=== PATIENT | female | born 1935 | race Caucasian/White ===

== ENCOUNTER → 2016-09-06 | Outpatient (CLI) | payer MEDICARE, MEDICAID ==
[2016-09-06 08:50] LABS: ABSOLUTE BASOPHILS # (AUTO) 0.1 10^3/uL (0.0-0.2); ABSOLUTE EOSINOPHILS # (AUTO) 0.2 10^3/uL (0.0-0.6); ABSOLUTE MONOCYTES (AUTO) 0.7 10^3/uL (0.1-1.4); ABSOLUTE NEUT (AUTO) 4.6 10^3/uL (1.7-8.2); EOSINOPHILS % (AUTO) 2.5 % (0-6); HEMATOCRIT 34.3 % (36.0-47.0); HEMOGLOBIN 10.8 g/dL (12.0-15.5); HGB HCT DIFFERENCE -1.9; LYMPHOCYTES % (AUTO) 26.6 % (13-45); MEAN CORPUSCULAR HEMOGLOBIN 24.4 pg (27.0-33.4); MEAN CORPUSCULAR HGB CONC 31.5 g/dL (32.0-36.0); MEAN CORPUSCULAR VOLUME 78 fl (80-97); MONOCYTES % (AUTO) 8.9 % (3-13); RED BLOOD COUNT 4.42 10^6/uL (3.72-5.28); RED CELL DISTRIBUTION WIDTH 16.7 % (11.5-14.0); WHITE BLOOD COUNT 7.6 10^3/uL (4.0-10.5)
[2016-09-06 09:20] LABS: ALANINE AMINOTRANSFERASE 19 U/L (9-52); ALBUMIN 4.1 g/dL (3.5-5.0); ALKALINE PHOSPHATASE 97 U/L (38-126); ANION GAP 11 (5-19); ASPARTATE AMINO TRANSFERASE 20 U/L (14-36); BILIRUBIN,DIRECT 0.2 mg/dL (0.0-0.4); BILIRUBIN,TOTAL 0.4 mg/dL (0.2-1.3); BLOOD UREA NITROGEN 22 mg/dL (7-20); CALCIUM 10.4 mg/dL (8.4-10.2); CARBON DIOXIDE 28 mmol/L (22-30); CHLORIDE 105 mmol/L (98-107); CHOLESTEROL 179.23 mg/dL (0-200); CREATININE RESULT 0.94 mg/dL (0.52-1.25); Direct HDL 65 mg/dL (>40); GLUCOSE 102 mg/dL (75-110); POTASSIUM 4.8 mmol/L (3.6-5.0); SODIUM 144.3 mmol/L (137-145); TOTAL PROTEIN 7.5 g/dL (6.3-8.2); TRIGLYCERIDES 120 mg/dL (<150)
[2016-09-06 09:31] LABS: DIRECT LDL 71 mg/dL (<100)
[2016-09-06 19:10] LABS: FERRITIN 6.32 ng/mL (11.1-264.0)
== END ==
LOC: OD 07:50
PROVIDERS: ATTEND Internal Medicine
DX: R53.83 Other fatigue (principal); E78.5 Hyperlipidemia, unspecified; E03.9 Hypothyroidism, unspecified; D64.9 Anemia, unspecified
CPT/HCPCS: 36415; 80053; 80061; 82728; 83540; 83550; 84443; 85025; 85045

== ENCOUNTER 2017-05-28 08:08 | Inpatient (IN) | payer MEDICARE, MEDICAID ==
[2017-05-21 11:47] LABS: HEMATOCRIT 35.4 % (36.0-47.0); HEMOGLOBIN 11.7 g/dL (12.0-15.5); HGB HCT DIFFERENCE -0.3; MEAN CORPUSCULAR HEMOGLOBIN 29.1 pg (27.0-33.4); MEAN CORPUSCULAR HGB CONC 32.9 g/dL (32.0-36.0); MEAN CORPUSCULAR VOLUME 88 fl (80-97); RED BLOOD COUNT 4.01 10^6/uL (3.72-5.28); RED CELL DISTRIBUTION WIDTH 14.6 % (11.5-14.0); WHITE BLOOD COUNT 6.9 10^3/uL (4.0-10.5)
--- NOTE | 2017-05-21 11:53 | RADIOLOGY REPORT (SQ) ---
EXAM DESCRIPTION: CHEST PA/LATERAL COMPLETED DATE/TIME: 05/21/2017 11:36 am REASON FOR STUDY: PRE OP COMPARISON: None. EXAM PARAMETERS: NUMBER OF VIEWS: two views TECHNIQUE: Digital Frontal and Lateral radiographic views of the chest acquired. RADIATION DOSE: NA LIMITATIONS: none FINDINGS: LUNGS AND PLEURA: The lungs are hyperexpanded with flattening of the diaphragms. There ar e no infiltrates or effusions. There is no mass. MEDIASTINUM AND HILAR STRUCTURES: No masses or contour abnormalities. HEART AND VASCULAR STRUCTURES: Heart normal size. No evidence for failure. BONES: No acute findings. HARDWARE: None in the chest. OTHER: No other significant finding. IMPRESSION: Mild chronic lung changes with no acute cardiopulmonary disease TECHNICAL DOCUMENTATION: JOB ID: [id number] [employer]- All Rights Reserved
--- NOTE | 2017-05-21 11:58 | EKG REPORT ---
SEVERITY:- ABNORMAL ECG - SINUS RHYTHM LVH WITH SECONDARY REPOLARIZATION ABNORMALITY : Confirmed by: Fernando Chiang 21-May-2017 11:57:52
[2017-05-21 12:16] LABS: ANION GAP 11 (5-19); BLOOD UREA NITROGEN 14 mg/dL (7-20); CARBON DIOXIDE 29 mmol/L (22-30); CHLORIDE 104 mmol/L (98-107); CREATININE RESULT 0.86 mg/dL (0.52-1.25); GLUCOSE 88 mg/dL (75-110); POTASSIUM 4.4 mmol/L (3.6-5.0); SODIUM 143.6 mmol/L (137-145)
[~2017-05-28 08:08] MED LIST: BUPIVACAINE HCL 0.25 % INJ/PF (2.5 MG/1 ML) 30 ML VIAL ONE; LACTATED RINGERS 1000 ML IV PRN; LIDOCAINE 0.5% INJ-PF (5 MG/ML) 50 ML SDV SUBCUT PRN
[2017-05-28] MEDS ORDERED: FENTANYL CITRATE INJ/PF 100 MCG/2 ML AMPUL ONE ×3 (08:23→08:49)
[2017-05-28] MEDS ORDERED: MIDAZOLAM 2 MG/2 ML INJ ONE (08:23)
[2017-05-28] MEDS ORDERED: ACETAMINOPHEN 100 ML IV ONE (08:24)
[2017-05-28] MEDS ORDERED: MORPHINE SULFATE 10 MG/ML INJ ONE (08:24)
[2017-05-28] MEDS ORDERED: PROPOFOL INJ 200 MG/20 ML VIAL IV ONE (08:24)
[2017-05-28] MEDS ORDERED: EPHEDRINE SULFATE INJ 50 MG/1 ML AMPULE ONE (08:24)
[2017-05-28] MEDS: ERTAPENEM SODIUM 1 GM in NORMAL SALINE 50 ML IV PRN ×3 (09:04→20:16)
[2017-05-28] MEDS ORDERED: DIPHENHYDRAMINE HCL 50 MG/ML VIAL IV PRN (10:19)
[2017-05-28] MEDS ORDERED: PROMETHAZINE HCL INJ 25 MG/1 ML VIAL IV PRN (10:19)
[2017-05-28] MEDS ORDERED: FENTANYL CITRATE INJ/PF 100 MCG/2 ML AMPUL IV PRN ×3 (10:19)
[2017-05-28] MEDS: FENTANYL CITRATE INJ/PF 100 MCG/2 ML AMPUL ONE ×4 (12:24→12:42)
[2017-05-28] MEDS ORDERED: DEXTROSE 50%-WATER 25 GM/50 ML DISP.SYRIN IV PRN ×2 (12:43)
[2017-05-28] MEDS ORDERED: GLUCAGON,HUMAN RECOMB 1 MG INJ SUBCUT PRN (12:43)
[2017-05-28] MEDS ORDERED: DEXTROSE 40% GEL 15 GM TUBE PO PRN ×2 (12:43)
--- NOTE | 2017-05-28 12:57 | Operative Report ---
Operative Report DATE OF SURGERY: 05/28/17 PREOPERATIVE DIAGNOSIS: Right colon adenomatous polyp with dysplasia POSTOPERATIVE DIAGNOSIS: Same OPERATION: Laparoscopic hand-assisted partial right colon resection. Lysis of adhesions. SURGEON: NESTOR DANIEL ANESTHESIA: GA TISSUE REMOVED OR ALTERED: Proximal one fourth of right colon with very distal aspect of terminal ileum COMPLICATIONS: None ESTIMATED BLOOD LOSS: 100 cc INTRAOPERATIVE FINDINGS: Sessile polyp in the proximal right colon with evidence of prior biopsies. Extensive pelvic adhesions PROCEDURE: Informed consent was obtained. Patient was brought to the operating room and placed on the operating room table in the supine position. After satisfactory induction of general anesthesia patient's abdomen was prepped and draped in the usual sterile fashion. A midline periumbilical incision was made dissection carried down through the fascia and the peritoneal cavity was entered without difficulty. There were extensive lower abdominal omental adhesions which were taken down and a laparoscopic hand port was placed. Pneumoperitoneum produced with good patient toleration. A 5 mm trocar was placed in the subxiphoid location entering the peritoneal cavity to the right-hand side of the falciform ligament. End of the 5 mm trocar was placed in the right upper abdomen. There were extensive pelvic adhesions consisting of terminal ileum. All of these adhesions were taken down to allow enough mobility of the terminal ileum for the resection. The more dense omental adhesions in the pelvis were left alone. The right colon was mobilized along the line of Toldt up to the hepatic flexure. After sufficient mobility of the right colon had been obtained the cecum, terminal ileum, proximal aspect of the right colon were eviscerated through the laparoscopic hand port site. Using a TRIP stapling device the terminal ileum was divided close to its junction to the cecum. Two folds past the cecum the right colon was divided using a TRIP stapling device. The endoscopist had noted the lesion to be at the junction of the cecum right colon and the terminal ileum, therefore I felt that had resected sufficient amount of the right colon to encompass the polyp. The mesentery was taken by clamping dividing and tying. The mesentery was taken immediately adjacent to the bowel to avoid compromising the remaining bowel. The remaining bowel appeared pink and well vascularized. Triphasic signals were noted with the Doppler. The specimen was taken to pathology where it was opened and there was a sessile polyp in the right colon that had the appearance of prior biopsies. Bowel continuity was then re-created creating a [id number] functional end-to-end anastomosis between the terminal ileum and the right colon using a TRIP stapling device. The enterotomy created to introduced a stapling device was closed with a TA stapling device. Hemostasis appeared good. The anastomosis appeared secure. The bowel was returned back into the peritoneal cavity. Laparoscopic view demonstrated good hemostasis. There had been some slight oozing at the dissection of the omentum at the beginning of the case but bleeding appeared to have completely stopped. Despite multiple technical measures and NG tube could not be placed into the stomach. Laparoscopic view of the anterior abdominal wall appeared normal other than the adhesions that was mentioned. The liver appeared normal. All trochars were removed under the direct vision of the laparoscope to ensure hemostasis. The laparoscopic hand port fascial defect was closed with running PDS suture. All skin incisions were closed with sally. Marcaine was injected at the operative sites. Patient tolerated procedure well with no apparent complications and was taken to the recovery area in stable condition.
[2017-05-28] MEDS ORDERED: HYDROMORPHONE HCL INJ/PF 2 MG/ML AMPULE ONE (13:00)
[2017-05-28] MEDS ORDERED: GLYCOPYRROLATE INJ 0.4 MG/2 ML VIAL ONE (14:48)
[2017-05-28] MEDS ORDERED: ONDANSETRON HCL INJ/PF 4 MG/2 ML SDV ONE (14:48)
[2017-05-28] MEDS ORDERED: SUCCINYLCHOLINE CHLORIDE INJ 200 MG/10 ML VIAL ONE (14:48)
[2017-05-28] MEDS ORDERED: VECURONIUM BROMIDE INJ 10 MG VIAL IV ONE (14:48)
[2017-05-28] MEDS ORDERED: DEXAMETHASONE SOD PHOSPHATE INJ 4 MG/1 ML VIAL ONE (14:48)
[2017-05-28] MEDS ORDERED: LIDOCAINE 2% INJ-PF (20 MG/ML) 2 ML AMPUL ONE (14:48)
[2017-05-28] MEDS ORDERED: NEOSTIGMINE METHYLSULFATE 10 MG/10 ML VIAL ONE (14:48)
[2017-05-28] MEDS: HYDROMORPHONE HCL INJ/PF 2 MG/ML AMPULE IV PRN (15:01)
[2017-05-28] MEDS: ONDANSETRON HCL INJ/PF 4 MG/2 ML SDV IV PRN (15:08)
--- NOTE | 2017-05-28 17:16 | PDOC PROGRESS REPORT ---
Subjective Progress Note for:: 05/28/17 Subjective:: Mid abdominal pain at the incision site. Reason For Visit: K63.5 POLYP OF COLON Physical Exam Vital Signs: Temp Pulse Resp BP Pulse Ox 97.5 F 79 12 131/53 H 98 05/28/17 16:15 05/28/17 16:15 05/28/17 16:15 05/28/17 16:15 05/28/17 15:15 Intake & Output 05/27/17 05/28/17 05/29/17 06:59 06:59 06:59 Intake Total 2200 Output Total 575 Balance 1625 General appearance: PRESENT: cooperative, mild distress - Complains of mid abdominal pain Respiratory exam: PRESENT: clear to auscultation maikol Cardiovascular exam: PRESENT: RRR GI/Abdominal exam: PRESENT: other - Soft, Nondistended, appropriate tenderness at the midline. Skin exam: PRESENT: warm Results Laboratory Results: 05/21/17 10:43 05/21/17 10:43 05/28/17 08:50 Blood Type A POSITIVE Antibody Screen NEGATIVE Impressions: Chest X-Ray 05/21/17 11:26 IMPRESSION: Mild chronic lung changes with no acute cardiopulmonary disease Assessment & Plan - Diagnosis (1) Adenomatous colon polyp Qualifiers: Colon location: ascending Qualified Code(s): D12.2 - Benign neoplasm of ascending colon Is this a current diagnosis for this admission?: Yes Plan: Status post laparoscopic partial right colon resection. Patient with incisional pain at the hand port site that is to be expected at this point. Will try Toradol if ineffective, will increase her Dilaudid dose. Patient looks okay otherwise. Await bowel function.
[2017-05-28] MEDS: KETOROLAC TROMETHAMINE INJ/PF 30 MG/1 ML SDV IV SCH (17:44)
[2017-05-29] MEDS: KETOROLAC TROMETHAMINE INJ/PF 30 MG/1 ML SDV IV SCH ×3 (02:27→17:18)
[2017-05-29 05:43] LABS: HEMATOCRIT 32.3 % (36.0-47.0); HEMOGLOBIN 10.6 g/dL (12.0-15.5); HGB HCT DIFFERENCE -0.5; MEAN CORPUSCULAR HEMOGLOBIN 28.9 pg (27.0-33.4); MEAN CORPUSCULAR HGB CONC 32.9 g/dL (32.0-36.0); MEAN CORPUSCULAR VOLUME 88 fl (80-97); RED BLOOD COUNT 3.67 10^6/uL (3.72-5.28); RED CELL DISTRIBUTION WIDTH 14.2 % (11.5-14.0); WHITE BLOOD COUNT 11.3 10^3/uL (4.0-10.5)
[2017-05-29 06:08] LABS: ANION GAP 9 (5-19); BLOOD UREA NITROGEN 11 mg/dL (7-20); CALCIUM 8.6 mg/dL (8.4-10.2); CARBON DIOXIDE 24 mmol/L (22-30); CHLORIDE 108 mmol/L (98-107); CREATININE RESULT 0.81 mg/dL (0.52-1.25); GLUCOSE 99 mg/dL (75-110); POTASSIUM 4.2 mmol/L (3.6-5.0)
[2017-05-29] MEDS: NORMAL SALINE 1000 ML 1,000 ML IV PRN (10:48)
[2017-05-29] MEDS: HYDROMORPHONE HCL INJ/PF 2 MG/ML AMPULE IV PRN (12:04)
--- NOTE | 2017-05-29 12:05 | PDOC PROGRESS REPORT ---
Subjective Progress Note for:: 05/29/17 Subjective:: Feels well. No nausea. Abdominal pain of the good control. Reason For Visit: K63.5 POLYP OF COLON Physical Exam Vital Signs: Temp Pulse Resp BP Pulse Ox 98.2 F 70 20 126/43 H 96 05/29/17 08:31 05/29/17 08:31 05/29/17 08:31 05/29/17 08:31 05/29/17 09:24 Intake & Output 05/28/17 05/29/17 05/30/17 06:59 06:59 06:59 Intake Total 4320 Output Total 1055 Balance 3265 Weight 69.4 kg General appearance: PRESENT: no acute distress, cooperative Respiratory exam: PRESENT: clear to auscultation maikol Cardiovascular exam: PRESENT: RRR GI/Abdominal exam: PRESENT: soft, other - Distended and minimal tenderness to palpation. Musculoskeletal exam: PRESENT: other - No swelling. Results Laboratory Results: 05/29/17 05:06 05/29/17 05:06 05/29/17 05/29/17 05:06 05:06 WBC 11.3 H RBC 3.67 L Hgb 10.6 L Hct 32.3 L MCV 88 MCH 28.9 MCHC 32.9 RDW 14.2 H Plt Count 197 Sodium 141.0 Potassium 4.2 Chloride 108 H Carbon Dioxide 24 Anion Gap 9 BUN 11 Creatinine 0.81 Est GFR ( Amer) > 60 Est GFR (Non-Af Amer) > 60 Glucose 99 Calcium 8.6 Impressions: Chest X-Ray 05/21/17 11:26 IMPRESSION: Mild chronic lung changes with no acute cardiopulmonary disease Assessment & Plan - Diagnosis (1) Adenomatous colon polyp Qualifiers: Colon location: ascending Qualified Code(s): D12.2 - Benign neoplasm of ascending colon Is this a current diagnosis for this admission?: Yes Plan: Doing well after laparoscopic partial right colon resection. CARLOS Corbett. Ambulate patient. await bowel function.
[2017-05-30] MEDS: KETOROLAC TROMETHAMINE INJ/PF 30 MG/1 ML SDV IV SCH ×3 (02:10→18:01)
[2017-05-30] MEDS: ONDANSETRON HCL INJ/PF 4 MG/2 ML SDV IV PRN (07:46)
[2017-05-30] MEDS ORDERED: MAG HYDROX/AL HYDROX/SIMETH SUSP 30 ML UDCUP PO ONE (08:15)
[2017-05-30] MEDS: NORMAL SALINE 1000 ML 1,000 ML IV PRN (08:15)
[2017-05-30] MEDS ORDERED: FAMOTIDINE INJ/PF 20 MG/2 ML SDV IV ONE (08:15)
--- NOTE | 2017-05-30 09:35 | PDOC PROGRESS REPORT ---
Subjective Progress Note for:: 05/30/17 Subjective:: Patient has been experiencing heartburn with burning sensation radiating all the way to the mouth. No associated shortness of breath. She has had no emesis. She has passed small amount of liquid stool. She was given Mylanta and she states that her heartburn symptoms are improving. Reason For Visit: K63.5 POLYP OF COLON Physical Exam Vital Signs: Temp Pulse Resp BP Pulse Ox 98.0 F 79 17 186/60 H 94 05/30/17 07:46 05/30/17 07:46 05/30/17 07:46 05/30/17 07:46 05/30/17 07:46 Intake & Output 05/29/17 05/30/17 05/31/17 06:59 06:59 06:59 Intake Total 4320 2080 Output Total 1055 1950 Balance 3265 130 Weight 69.4 kg 71.5 kg General appearance: PRESENT: no acute distress, cooperative Respiratory exam: PRESENT: clear to auscultation maikol Cardiovascular exam: PRESENT: RRR GI/Abdominal exam: PRESENT: other - Soft, mildly distended, diminished bowel sounds. Mild abdominal tenderness with no peritoneal signs. Wound clean dry and intact. Extremities exam: PRESENT: other - No swelling and no tenderness. Results Laboratory Results: 05/29/17 05:06 05/29/17 05:06 Impressions: Chest X-Ray 05/21/17 11:26 IMPRESSION: Mild chronic lung changes with no acute cardiopulmonary disease Assessment & Plan - Diagnosis (1) Adenomatous colon polyp Qualifiers: Colon location: ascending Qualified Code(s): D12.2 - Benign neoplasm of ascending colon Is this a current diagnosis for this admission?: Yes Plan: Doing well after laparoscopic partial right colon resection. Patient with reflux symptoms. Responding well to Mylanta. Will place her on Pepcid. If she does not have relief, will obtain EKG and proceed with a cardiac workup. However with her symptoms and improvement with Mylanta I am confident that it is reflux related symptoms. Hopefully she will have good bowel function soon so that we can avoid NG tube placement.
[2017-05-30] MEDS ORDERED: [UNRECOGNIZED DRUG - OTHER] IV PRN ×2 (09:36)
[2017-05-30] MEDS ORDERED: POTASSIUM CHLORIDE IV PRN ×2 (09:36)
[2017-05-30] MEDS ORDERED: DEXTROSE IV PRN ×2 (09:36)
[2017-05-30] MEDS: POTASSI CL 20 MEQ/D5-1/2NS 1L 1000 ML IV PRN (16:56)
[2017-05-30] MEDS: FAMOTIDINE INJ/PF 20 MG/2 ML SDV IV SCH (21:50)
[2017-05-31] MEDS: KETOROLAC TROMETHAMINE INJ/PF 30 MG/1 ML SDV IV SCH ×3 (02:12→18:14)
[2017-05-31] MEDS: POTASSI CL 20 MEQ/D5-1/2NS 1L 1000 ML IV PRN (04:34)
--- NOTE | 2017-05-31 08:29 | PDOC PROGRESS REPORT ---
Subjective Progress Note for:: 05/31/17 Subjective:: Feels tired but otherwise okay. No heartburn. No nausea. Patient is hungry. She has been passing gas and small amount of liquid stool. Reason For Visit: K63.5 POLYP OF COLON Physical Exam Vital Signs: Temp Pulse Resp BP Pulse Ox 97.5 F 66 18 160/47 H 93 05/30/17 23:47 05/30/17 23:47 05/30/17 23:47 05/30/17 23:47 05/30/17 23:47 Intake & Output 05/30/17 05/31/17 06/01/17 06:59 06:59 06:59 Intake Total 2080 2440 Output Total 1950 2600 Balance 130 -160 Weight 71.5 kg 72.3 kg General appearance: PRESENT: no acute distress, cooperative Respiratory exam: PRESENT: clear to auscultation maikol Cardiovascular exam: PRESENT: RRR GI/Abdominal exam: PRESENT: other - Soft, nondistended, active bowel sounds, mild tenderness without peritoneal signs. Extremities exam: PRESENT: other - No swelling. Results Laboratory Results: 05/29/17 05:06 05/29/17 05:06 Impressions: Chest X-Ray 05/21/17 11:26 IMPRESSION: Mild chronic lung changes with no acute cardiopulmonary disease Assessment & Plan - Diagnosis (1) Adenomatous colon polyp Qualifiers: Colon location: ascending Qualified Code(s): D12.2 - Benign neoplasm of ascending colon Is this a current diagnosis for this admission?: Yes Plan: Doing well after laparoscopic partial right colon resection. Gastrointestinal symptoms markedly improved from yesterday. Evidence of bowel function with flatus and active bowel sounds. No nausea no heartburn. Will start clear liquids today.
[2017-05-31] MEDS ORDERED: POTASSI CL 20 MEQ/D5-1/2NS 1L 1,000 ML IV PRN (08:30)
[2017-05-31] MEDS: FAMOTIDINE INJ/PF 20 MG/2 ML SDV IV SCH ×2 (11:16→22:37)
[2017-06-01] MEDS: KETOROLAC TROMETHAMINE INJ/PF 30 MG/1 ML SDV IV SCH ×3 (03:35→21:05)
[2017-06-01] MEDS: FAMOTIDINE INJ/PF 20 MG/2 ML SDV IV SCH ×2 (10:47→21:05)
[2017-06-01] MEDS ORDERED: ACETAMINOPHEN WITH CODEINE #3 TABLET PO PRN (11:14)
--- NOTE | 2017-06-01 11:21 | PDOC PROGRESS REPORT ---
Subjective Progress Note for:: 06/01/17 Reason For Visit: K63.5 POLYP OF COLON Patient has no complaints, tolerated clear liquids without difficulty. Transferring about on her own, ambulating with walker Physical Exam Vital Signs: Temp Pulse Resp BP Pulse Ox 97.6 F 62 12 152/51 H 94 06/01/17 07:36 06/01/17 07:36 06/01/17 07:36 06/01/17 07:36 06/01/17 07:36 Intake & Output 05/31/17 06/01/17 06/02/17 06:59 06:59 06:59 Intake Total 2440 3359 0 Output Total 2600 500 Balance -160 3359 -500 Weight 72.3 kg 69.4 kg General appearance: PRESENT: no acute distress GI/Abdominal exam: PRESENT: other - Dressings removed. Minimal bruising Results Laboratory Results: 05/29/17 05:06 05/29/17 05:06 Impressions: Chest X-Ray 05/21/17 11:26 IMPRESSION: Mild chronic lung changes with no acute cardiopulmonary disease Assessment & Plan - Diagnosis (1) Adenomatous colon polyp Qualifiers: Colon location: ascending Qualified Code(s): D12.2 - Benign neoplasm of ascending colon Is this a current diagnosis for this admission?: Yes Plan: 4 days status post laparoscopic right hemicolectomy, doing well, no complications, adequate pain control, tolerating clear liquids, voiding and ambulating. Plan: 1. Advance diet to full liquid 2. Start full liquids 3. Anticipate discharge home the next 24 hours.
[2017-06-02] MEDS ORDERED: KETOROLAC TROMETHAMINE INJ/PF 30 MG/1 ML SDV IV SCH (02:00)
[2017-06-02] MEDS: KETOROLAC TROMETHAMINE INJ/PF 30 MG/1 ML SDV IV SCH (06:24)
[2017-06-02] MEDS: FAMOTIDINE INJ/PF 20 MG/2 ML SDV IV SCH (09:43)
[2017-06-02 10:04] VITALS: BP 154/48
[2017-06-02] MEDS ORDERED: LEVOTHYROXINE SODIUM 0.025 MG TABLET PO ONE (10:30)
[2017-06-02] MEDS ORDERED: LEVOTHYROXINE SODIUM 0.112 MG TABLET PO ONE (10:30)
--- NOTE | 2017-06-02 16:08 | DISCHARGE SUMMARY E ---
Discharge Summary NAME: JAN EDUARDO : 1935 AGE: 82Y ADMITTED: 05/28/2017 DISCHARGED: 06/02/2017 SUMMARY OF HOSPITALIZATION: The patient is an 82-year-old white female with a history of a right colon polyp with atypia. The patient was brought to Ambulatory Surgery for definitive surgical management. On 05/28/2017, she was taken to the operating room by Dr. Catracho Lerma and underwent laparoscopic hand-assisted partial right colon resection. She tolerated the operation well without complication. Final pathology report showed chronic inflammation only, no evidence of dysplasia malignancy. Postoperatively the patient did well, started on a diet, and this was advanced and tolerated satisfactorily. Wounds healed without evidence of infection. By the fifth postoperative day, she ready for discharge home. FINAL DIAGNOSIS: History of atypical polyp, right colon, status post right hemicolectomy, laparoscopic hand assisted, Dr. Lerma. DISPOSITION: The patient will be discharged home to the care of her family. Followup with Dr. Lerma in approximately 1 week. Resume preoperative medications, diet, and activity. Specifically, she will be given Synthroid 137 mcg today; she was also given a script for Toradol p.o. DICTATING PHYSICIAN: ALYSSA FROST M.D. [id number] PHY#: [id number] ID: [id number] JOB#: [id number] ACCT: [id number] cc:Ele CANO M.D. >
== END 2017-06-02 10:40 | disposition home or self-care (01) | DRG 331 ==
LOC: INOR 08:08 → 4S 14:11
PROVIDERS: ADMIT Surgery; ATTEND Surgery
PROC: 0DNW4ZZ Release Peritoneum, Percutaneous Endoscopic Approach (ICD-10-PCS; 2017-05-28)
PROC: 0DTF4ZZ Resection of Right Large Intestine, Percutaneous Endoscopic Approach (ICD-10-PCS; principal; 2017-05-28 09:30)
DX: D12.2 Benign neoplasm of ascending colon (principal); E07.9 Disorder of thyroid, unspecified; M19.90 Unspecified osteoarthritis, unspecified site; N99.4 Postprocedural pelvic peritoneal adhesions
CPT/HCPCS: 36415; 71020; 80048; 810; 82378; 840; 85027; 86850; 86900; 86901; 88307; 93005; 93010; J0131; J0330; J1100; J1170; J1335; J1885; J2250; J2270; J2405; J2704; J3010; J3480; J3490; J7030; S0028

== ENCOUNTER 2018-04-19 15:56 | Emergency (ER) | payer MEDICARE, MEDICAID ==
[2018-04-19 16:05] VITALS: BP 193/67
[2018-04-19] MEDS ORDERED: DIPH/PERTUSS(ACELL)/TETANUS VAC/PF 0.5 ML SYR (>=10YO) IM ONE (16:14)
--- NOTE | 2018-04-19 16:15 | ER Document Report ---
ED Medical Screen (RME) - General Chief Complaint: Fall Injury Stated Complaint: FALL,LEFT LEG INJURY Time Seen by Provider: 04/19/18 16:13 Mode of Arrival: Ambulatory Information source: Patient TRAVEL OUTSIDE OF THE [place] IN LAST 30 DAYS: No - HPI Patient complains to provider of: fall Onset: Just prior to arrival - pt. tripped and fell with injury to mid back, L chest , and L knee. Tet- ood - Related Data Allergies/Adverse Reactions: codeine Allergy (Verified 05/27/17 15:38) morphine Allergy (Verified 05/27/17 15:38) Past Medical History - Past Medical History Cardiac Medical History: Reports: Hx Hypercholesterolemia Denies: Hx Atrial Fibrillation, Hx Congestive Heart Failure, Hx Coronary Artery Disease, Hx Heart Attack, Hx Hypertension, Hx Peripheral Vascular Disease , Hx Heart Murmur Endocrine Medical History: Reports: Hx Hypothyroidism. Denies: Hx Graves' Disease, Hx Hyperthyroidism Renal/ Medical History: Reports: Hx Kidney Stones. Denies: Hx End Stage Renal Disease, Hx Peritoneal Dialysis Malignancy Medical History: Denies: Hx Leukemia GI Medical History: Reports: Hx Gastroesophageal Reflux Disease. Denies: Hx Crohn's Disease, Hx Hiatal Hernia, Hx Irritable Bowel, Hx Liver Failure, Hx Pancreatitis, Hx Ulcer Musculoskeltal Medical History: Reports Hx Arthritis - knees , Denies Hx Fibromyalgia, Denies Hx Muscular Dystrophy Traumatic Medical History: Denies: Hx Fractures Infectious Medical History: Denies: Hx HIV Past Surgical History: Reports: Hx Appendectomy, Hx Hysterectomy. Denies: Hx Bowel Surgery, Hx Section, Hx Cholecystectomy, Hx Colostomy, Hx Coronary Artery Bypass Graft, Hx Gastric Bypass Surgery, Hx Herniorrhaphy, Hx Mastectomy, Hx Pacemaker, Hx Tonsillectomy, Hx Tubal Ligation - Immunizations Immunizations up to date: No Hx Diphtheria, Pertussis, Tetanus Vaccination: No - unknown History of Influenza Vaccine for 03/2017 - 08/2017 Season: Yes Influenza Administration Date for 03/2017 - 08/2017 Season: 03/17/17 Physical Exam - Vital signs Vitals: Temp Pulse Resp BP Pulse Ox 97.7 F 86 17 193/67 H 97 04/19/18 16:03 04/19/18 16:03 04/19/18 16:03 04/19/18 16:03 04/19/18 16:03 Course - Vital Signs Vital signs: Temp Pulse Resp BP Pulse Ox 97.7 F 86 17 193/67 H 97 04/19/18 16:03 04/19/18 16:03 04/19/18 16:03 04/19/18 16:03 04/19/18 16:03 Doctor's Discharge - Discharge Referrals: ADELIA ROBERTO MD [Primary Care Provider] - Follow up as needed
--- NOTE | 2018-04-19 17:23 | RADIOLOGY REPORT (SQ) ---
EXAM DESCRIPTION: KNEE LEFT 3 VIEWS COMPLETED DATE/TIME: 04/19/2018 5:00 pm REASON FOR STUDY: fall COMPARISON: None. EXAM PARAMETERS: NUMBER OF VIEWS: Three views. TECHNIQUE: AP, lateral and oblique radiographic images acquired of the left knee. LIMITATIONS: None. FINDINGS: MINERALIZATION: Osteopenia. BONES: No acute fracture or dislocation. No worrisome bone lesions. JOINTS: No effusion. SOFT TISSUES: No significant soft tissue swelling. No radiopaque foreign body. OTHER: No other significant finding. IMPRESSION: NO FRACTURE. TECHNICAL DOCUMENTATION: JOB ID: [id number] 2010 [email or web address]- All Rights Reserved Reading location - IP/workstation name: [email or web address]
--- NOTE | 2018-04-19 17:24 | RADIOLOGY REPORT (SQ) ---
EXAM DESCRIPTION: CHEST 2 VIEWS COMPLETED DATE/TIME: 04/19/2018 5:00 pm REASON FOR STUDY: fall COMPARISON: None. EXAM PARAMETERS: NUMBER OF VIEWS: two views TECHNIQUE: Digital Frontal and Lateral radiographic views of the chest acquired. RADIATION DOSE: NA LIMITATIONS: none FINDINGS: LUNGS AND PLEURA: No opacities, masses or pneumothorax. No pleural effusion. MEDIASTINUM AND HILAR STRUCTURES: No masses or contour abnormalities. HEART AND VASCULAR STRUCTURES: Heart normal size. No evidence for failure. BONES: No acute findings. HARDWARE: None in the chest. OTHER: No other significant finding. IMPRESSION: NO ACUTE RADIOGRAPHIC FINDING IN THE CHEST. TECHNICAL DOCUMENTATION: JOB ID: [id number] [place]-72 2010 [email or web address]- All Rights Reserved Reading location - IP/workstation name: [email or web address]
--- NOTE | 2018-04-19 17:25 | RADIOLOGY REPORT (SQ) ---
EXAM DESCRIPTION: T SPINE AP/LAT COMPLETED DATE/TIME: 04/19/2018 5:00 pm REASON FOR STUDY: fall COMPARISON: None. NUMBER OF VIEWS: Two views. TECHNIQUE: AP and lateral radiographic images acquired of the thoracic spine. LIMITATIONS: None. FINDINGS: MINERALIZATION: Normal. ALIGNMENT: Normal. No scoliosis. VERTEBRAE: No fracture or bone lesion. Maintained height, normal segmentation. DISCS: Multilevel disc space narrowing with osteophytes. HARDWARE: None in the spine. MEDIASTINUM AND SOFT TISSUES: Normal heart size and aortic contour. No soft tissue abnormality. VISUALIZED LUNG CABRERA: Clear. OTHER: No other significant finding. IMPRESSION: SPONDYLOSIS WITHOUT BONE LESION OR FRACTURE. TECHNICAL DOCUMENTATION: JOB ID: [id number] [place]-72 2010 [employer]- All Rights Reserved Reading location - IP/workstation name: [email or web address]
== END 2018-04-19 18:10 | disposition home or self-care (01) ==
LOC: ER 15:56
DX: S20.229A Contusion of unspecified back wall of thorax, initial encounter (principal); S29.9XXA Unspecified injury of thorax, initial encounter; S89.92XA Unspecified injury of left lower leg, initial encounter; W01.0XXA Fall on same level from slipping, tripping and stumbling without subsequent striking against object, initial encounter; Y93.89 Activity, other specified
CPT/HCPCS: 71046; 72070; 90471; 90715; 99283

== ENCOUNTER 2018-04-19 23:19 | Emergency (ER) | payer MEDICARE, MEDICAID ==
[2018-04-19 23:31] VITALS: BP 193/66
--- NOTE | 2018-04-20 01:33 | ER Document Report ---
HPI - HPI Patient complains to provider of: wound reevaluation Onset: This morning Onset/Duration: Sudden, Constant, Worse Quality of pain: Achy, Throbbing Severity: Moderate Pain Level: 3 Context: Patient is an 82-year-old female who was seen in the ER earlier today and evaluated for a trip and fall that she sustained at the [facility]. She states that she was walking back to her facility and she something made her turn her head and she tripped over 1 of the parking slabs to stop a car. She landed more on her left side and was able with help to get up and walk after the fall. She sustained skin tears to the lateral side of her left knee and to her left elbow. Patient had x-rays performed here and she was bandaged up and sent on her way. Patient states that she was very unhappy with the wound care she received. She states that even before leaving she told 1 of the girls that the bandages were coming off and also they did was take a piece of tape and tape into her leg. When she got home she was sitting on the couch and felt like something was running in her elbow started bleeding where it was wrapped up. Patient came back down to the ER because she did not know what else to do and wanted it to be reevaluated. She is not complaining of any new injuries or any other aches or pains its the wound areas that she is concerned with. Patient denies any use of or having taken any blood thinners. She only takes omeprazole, Synthroid. She states that she is a very healthy 82 and will be 83 next week. She is requesting that we reevaluate her wounds and address the need to stop bleeding. Associated Symptoms: Other - Wound bleeding Exacerbated by: Denies Relieved by: Denies Similar symptoms previously: Yes Recently seen / treated by doctor: Yes - ROS ROS Unobtainable: Yes ROS unobtainable due to patient's medical condition - No Systems Reviewed and Negative: Yes All other systems reviewed and negative - CONSTITUTIONAL Constitutional: DENIES: Fever - EENT EENT: DENIES: Sore Throat, Congestion - NEURO Neurology: DENIES: Headache, Weakness, Vision blurred, Dizzinesss / Vertigo - CARDIOVASCULAR Cardiovascular: DENIES: Chest pain - RESPIRATORY Respiratory: DENIES: Trouble Breathing, Coughing - GASTROINTESTINAL Gastrointestinal: DENIES: Abdominal Pain, Nausea, Patient vomiting, Diarrhea, Constipation, Black / Bloody Stools - URINARY Urinary: DENIES: Dysuria, Urgency, Frequency - MUSCULOSKELETAL Musculoskeletal: REPORTS: Extremity pain - DERM Skin Problems: Skin Tear, Abrasion Past Medical History - General Information source: Patient - Social History Smoking Status: Never Smoker Cigarette use (# per day): No Chew tobacco use (# tins/day): No Smoking Education Provided: No Frequency of alcohol use: None Drug Abuse: None Lives with: Alone Family History: None, Reviewed & Not Pertinent Patient has suicidal ideation: No Patient has homicidal ideation: No - Past Medical History Cardiac Medical History: Reports: Hx Hypercholesterolemia Denies: Hx Atrial Fibrillation, Hx Congestive Heart Failure, Hx Coronary Artery Disease, Hx Heart Attack, Hx Hypertension, Hx Peripheral Vascular Disease , Hx Heart Murmur Endocrine Medical History: Reports: Hx Hypothyroidism. Denies: Hx Graves' Disease, Hx Hyperthyroidism Renal/ Medical History: Reports: Hx Kidney Stones. Denies: Hx End Stage Renal Disease, Hx Peritoneal Dialysis Malignancy Medical History: Denies: Hx Leukemia GI Medical History: Reports: Hx Gastroesophageal Reflux Disease. Denies: Hx Crohn's Disease, Hx Hiatal Hernia, Hx Irritable Bowel, Hx Liver Failure, Hx Pancreatitis, Hx Ulcer Musculoskeletal Medical History: Reports Hx Arthritis - knees , Denies Hx Fibromyalgia, Denies Hx Muscular Dystrophy Traumatic Medical History: Denies: Hx Fractures Infectious Medical History: Denies: Hx HIV Past Surgical History: Reports: Hx Appendectomy, Hx Hysterectomy. Denies: Hx Bowel Surgery, Hx Section, Hx Cholecystectomy, Hx Colostomy, Hx Coronary Artery Bypass Graft, Hx Gastric Bypass Surgery, Hx Herniorrhaphy, Hx Mastectomy, Hx Pacemaker, Hx Tonsillectomy, Hx Tubal Ligation - Immunizations Immunizations up to date: No Hx Diphtheria, Pertussis, Tetanus Vaccination: No - unknown Hx Pneumococcal Vaccination: 03/17/15 Vertical Provider Document - CONSTITUTIONAL Agree With Documented VS: Yes Exam Limitations: No Limitations General Appearance: WD/WN, No Apparent Distress, Other - Uncomfortable appearing - INFECTION CONTROL TRAVEL OUTSIDE OF THE [place] IN LAST 30 DAYS: No - HEENT HEENT: Atraumatic, Normal ENT Exam, Normocephalic, PERRLA. negative: Conjuctival Injection, Dental Injury - NECK Neck: Normal Inspection, Supple - RESPIRATORY Respiratory: Breath Sounds Normal, No Respiratory Distress, Chest Non-Tender. negative: Rhonchi, Wheezing - CARDIOVASCULAR Cardiovascular: Regular Rate - GI/ABDOMEN Gastrointestinal: Abdomen Soft, Abdomen Non-Tender, No Organomegaly, Normal Bowel Sounds. negative: Abdomen Tender, Abdominal Guarding, Abdominal Rebound, Hepatomegaly, Spleenomegaly - BACK Back: Normal Inspection. negative: Abnormal Inspection, CVA Tenderness-Right, CVA Tenderness-Left - MUSCULOSKELETAL/EXTREMETIES Musculoskeletal/Extremeties: Eccymosis Notes: Examination of patient's left lower extremity shows a skin tear on the left lateral side of the knee. Actually there is 2 local areas there sitting side-by -side. And one small skin tear on the left lateral side of the elbow. The patient comes in with what appears to be Chandana wrap falling down around her knee. And bleeding through the Chandana. It had splotches a tape around the rim and at the bottom but it was not holding it up. On wrapping the wound the wounds look fairly clean the skin was still folded up underneath itself but I did not see any dirt. The left elbow was similar in presentation it was wrapped up the Band-Aid that had been placed was soaked through with blood and patient had taken a nap can put over top of the Band-Aid and re-taped the napkin to her arm. On the left arm however there is an extensive amount of bruising from the posterior portion of the left arm down to the elbow and to the forearm. That is bleeding up underneath the tissue the fine skin that she has. The elbow has multiple cracks in the dermis portion of the skin and skin tear that have actually folded up under themselves as well. Patient had no other complaints also x-rays have been taken of the areas that were questioned and she had full range of motion of all areas. - NEURO Level of Consciousness: Awake, Alert, Appropriate. negative: Inappropriate, Slow to Respond, Confused, Agitated, Sedated, Non-Verbal Motor/Sensory: No Motor Deficit, No Sensory Deficit, No Pronator Drift - DERM Integumentary: Abscess Notes: Inspection of the dermis is been described in the musculoskeletal section already. Therefore we are see above please. Course - Re-evaluation Re-evalutation: 04/20/18 01:42 EDT Reinspection of patient's wounds show them to be untidy. My nurse was able to clean them up very good I went back into the room and took 3 Dermabond pins I used sterile water and I stretched the skin tucked up underneath itself folded it and applied it over top of the open wound. I then took the Dermabond and sealed in the tissue to zaidi off infection. The edges came together relatively well. Then we did the same to the elbow and let the Dermabond dry. After that the nurse took some nonstick applied over top of those areas that we had Dermabond it in and use some little lightly applied Coban and to the area to give it some support. I rechecked him after application and found that they were not too tight but not too loose. Patient was very happy with the services she received. I am going to place her on antibiotics as we did close the wounds up I want to make sure that we cover her. Patient will be going home on her own accord she is awake alert and oriented and happy at this point. - Vital Signs Vital signs: Temp Pulse Resp BP Pulse Ox 97.6 F 73 18 193/66 H 96 04/19/18 23:30 04/19/18 23:30 04/19/18 23:30 04/19/18 23:30 04/19/18 23:30 Discharge - Discharge Clinical Impression: Skin tear, Skin tear left knee Skin tear of elbow without complication Qualifiers: Encounter type: sequela Laterality: left Qualified Code(s): S51.012S - Laceration without foreign body of left elbow, sequela Condition: Stable Disposition: HOME, SELF-CARE Instructions: Skin Tear ([facility]) Additional Instructions: We have used a tissue glue closure wounds. Because of this him in a place you on an oral antibiotic for a few days along with a 1 pill Diflucan to stop you from getting a yeast infection. I since you are glued you do not have to worry about cleaning the wounds daily. Although please pay close attention to the surrounding tissues since you have such thin skin. I would leave these dressings on until tomorrow afternoon. And then take them off and check him. At that point I would probably use just Band-Aids if possible if not then continue to use the Coban and type of material that she can get at the pharmacy just to not pull it tight he cannot use it like an Raymond wrap because it was to cut circulation off to your legs and then you will have swelling. So apply it very lightly but with enough strength to maintain its rigidity on your leg. Should you have any concerns return to ER for a recheck. By this I mean if it looks infected or if it opens up and bleeds please come back and let us look at him. My name is Khoaraymundo Mena on the physician operations assistant here in the emergency room and I will be here through tomorrow and then I will be back next week. Prescriptions: Cephalexin Monohydrate [Keflex 500 mg Capsule] 500 mg PO Q6H 5 Days #28 capsule Fluconazole [Diflucan] 150 mg PO ONCE PRN #1 tablet PRN Reason: Referrals: ADELIA ROBERTO MD [Primary Care Provider] - Follow up as needed
== END 2018-04-20 01:56 | disposition home or self-care (01) ==
LOC: ER 23:19
DX: S51.012A Laceration without foreign body of left elbow, initial encounter (principal); S81.012A Laceration without foreign body, left knee, initial encounter; W01.0XXA Fall on same level from slipping, tripping and stumbling without subsequent striking against object, initial encounter; Y93.01 Activity, walking, marching and hiking; Y92.199 Unspecified place in other specified residential institution as the place of occurrence of the external cause; E03.9 Hypothyroidism, unspecified; K21.9 Gastro-esophageal reflux disease without esophagitis; Z79.899 Other long term (current) drug therapy
CPT/HCPCS: 99283

== ENCOUNTER 2018-06-07 21:43 | Emergency (ER) | payer MEDICARE, MEDICAID ==
[2018-06-07] MEDS ORDERED: GLUCAGON,HUMAN RECOMB 1 MG INJ SUBCUT ONE (22:19)
[2018-06-07] MEDS ORDERED: LIDOCAINE 2% VISCOUS SOLN 20 ML UDCUP PO ONE (22:51)
[2018-06-07] MEDS ORDERED: MAG HYDROX/AL HYDROX/SIMETH SUSP 30 ML UDCUP PO ONE (22:51)
[2018-06-07] MEDS ORDERED: METOCLOPRAMIDE HCL ORAL SOLN 10 MG/10 ML UDCUP PO ONE (22:51)
--- NOTE | 2018-06-07 23:31 | ER Document Report ---
ED General - General Chief Complaint: Difficulty Swallowing Stated Complaint: THROAT PAIN Time Seen by Provider: 06/07/18 22:19 Notes: Patient is an 83-year-old female presents to the emergency department complaining of a foreign body sensation in her throat. Patient states 2 years ago she had the same sensation after eating steak states she presented to her gastroenterology's office who did an endoscopy and stated there was nothing there. Patient states she has had no issues foreign body sensation since her throat over the last 2 years. Patient states this evening she was eating carrots, potatoes, pot roast and feels as though when she swallowed the piece of pot roast it got stuck in her throat. Patient states she was able to inevitably vomit what she thought was the pot roast but continues to have to spit out her secretions because she cannot swallow. Patient is speaking in full sentences, is non-stridulous at this time respiratory rate 16, room air oxygen saturation 96%. Patient currently does not appear to be spitting out her secretions although there is an empty emesis bag at her side. Past medical history: Hyperlipidemia, hypothyroid Medications: Levothyroxine, Lipitor, Tylenol Allergies: Penicillin, morphine, oxycodone TRAVEL OUTSIDE OF THE [place] IN LAST 30 DAYS: No - Related Data Allergies/Adverse Reactions: codeine Allergy (Verified 05/27/17 15:38) morphine Allergy (Verified 05/27/17 15:38) Past Medical History - General Information source: Patient - Social History Smoking Status: Unknown if Ever Smoked Family History: None, Reviewed & Not Pertinent Patient has suicidal ideation: No Patient has homicidal ideation: No - Past Medical History Cardiac Medical History: Reports: Hx Hypercholesterolemia Denies: Hx Atrial Fibrillation, Hx Congestive Heart Failure, Hx Coronary Artery Disease, Hx Heart Attack, Hx Hypertension, Hx Peripheral Vascular Disease, Hx Heart Murmur Endocrine Medical History: Reports: Hx Hypothyroidism. Denies: Hx Graves' Disease, Hx Hyperthyroidism Renal/ Medical History: Reports: Hx Kidney Stones. Denies: Hx End Stage Renal Disease, Hx Peritoneal Dialysis Malignancy Medical History: Denies: Hx Leukemia GI Medical History: Reports: Hx Gastroesophageal Reflux Disease. Denies: Hx Crohn's Disease, Hx Hiatal Hernia, Hx Irritable Bowel, Hx Liver Failure, Hx Pancreatitis, Hx Ulcer Musculoskeletal Medical History: Reports Hx Arthritis - knees , Denies Hx Fibromyalgia, Denies Hx Muscular Dystrophy Traumatic Medical History: Denies: Hx Fractures Infectious Medical History: Denies: Hx HIV Past Surgical History: Reports: Hx Appendectomy, Hx Hysterectomy. Denies: Hx Bowel Surgery, Hx Section, Hx Cholecystectomy, Hx Colostomy, Hx Coronary Artery Bypass Graft, Hx Gastric Bypass Surgery, Hx Herniorrhaphy, Hx Mastectomy, Hx Pacemaker, Hx Tonsillectomy, Hx Tubal Ligation - Immunizations Immunizations up to date: No Hx Diphtheria, Pertussis, Tetanus Vaccination: No - unknown Hx Pneumococcal Vaccination: 03/17/15 Review of Systems - Review of Systems Constitutional: No symptoms reported EENT: See HPI Cardiovascular: No symptoms reported Respiratory: See HPI Gastrointestinal: See HPI Genitourinary: No symptoms reported Female Genitourinary: No symptoms reported Musculoskeletal: No symptoms reported Skin: No symptoms reported Hematologic/Lymphatic: No symptoms reported Physical Exam - Notes Notes: GENERAL: Alert, interacts well. No acute distress. Patient does not have stridor HEAD: Normocephalic, atraumatic. EYES: Pupils equal, round, and reactive to light. Extraocular movements intact. ENT: Oral mucosa moist, tongue midline. Pharynx within normal limits, tonsils +2 bilaterally no erythema noted. NECK: Full range of motion. Supple. Trachea midline. LUNGS: Clear to auscultation bilaterally, no wheezes, rales, or rhonchi. No respiratory distress. HEART: Regular rate and rhythm. No murmur ABDOMEN: Soft, non-tender. Non-distended. Bowel sounds present in all 4 quadrants. EXTREMITIES: Moves all 4 extremities spontaneously. No edema, normal radial and dorsalis pedis pulses bilaterally. No cyanosis. BACK: no cervical, thoracic, lumbar midline tenderness. No saddle anesthesia, normal distal neurovascular exam. NEUROLOGICAL: Alert and oriented x3. Normal speech. cranial nerves II through XII grossly intact PSYCH: Normal affect, normal mood. SKIN: Warm, dry, normal turgor. No rashes or lesions noted. Course - Re-evaluation Re-evalutation: 06/07/18 23:29 Upon initial examination patient has no stridor and no obvious foreign body is seen on physical exam. Patient was initially given an IM shot of glucagon. Shortly after that she alerts the nurse that she feels as though she can swallow secretions she just has minor pain. On reexamination patient continues to be without stridor and no respiratory distress. Patient states now when she swallows she has a minor amount of pain as though she may have scratched her throat. Patient was given a GI cocktail, after that patient was able to drink multiple sips of water with no throat pain, no vomiting. Patient continues to be without stridor, and no respiratory distress, respiratory rate 18, 97% on room air. Discussed following up with patient's primary care provider and inevitably glass edger again to be rescoped. Patient voices understanding and states she feels "100% better." Discharge - Discharge Clinical Impression: Foreign body sensation in throat Condition: Stable Disposition: HOME, SELF-CARE Instructions: Esophageal Foreign Body ([facility]) Additional Instructions: As we discussed you have been seen and treated in the emergency department for a foreign body sensation in your throat. Now that you can swallow and no longer have that sensation I feel as though you can be discharged home. Please make sure you follow-up with your primary care provider and inevitably gastroenterology within the next 24-48 hours. Please return to the emergency room should you have any respiratory distress or any other concerning symptoms. Referrals: ADELIA ROBERTO MD [Primary Care Provider] - Follow up as needed
[2018-06-07 23:54] VITALS: BP 173/45
== END 2018-06-07 23:45 | disposition home or self-care (01) ==
LOC: ER 21:43
DX: R09.89 Other specified symptoms and signs involving the circulatory and respiratory systems (principal); R07.0 Pain in throat; E78.00 Pure hypercholesterolemia, unspecified; E03.9 Hypothyroidism, unspecified; Z88.6 Allergy status to analgesic agent; Z87.442 Personal history of urinary calculi; Z90.710 Acquired absence of both cervix and uterus
CPT/HCPCS: 99283; 96372; J1610; J3490; A9270

== ENCOUNTER → 2018-07-14 | Outpatient (CLI) | payer MEDICARE, MEDICAID ==
[2018-07-14 08:30] LABS: ABSOLUTE BASOPHILS # (AUTO) 0.1 10^3/uL (0.0-0.2); ABSOLUTE EOSINOPHILS # (AUTO) 0.2 10^3/uL (0.0-0.6); ABSOLUTE LYMPHOCYTES (AUTO) 1.3 10^3/uL (0.5-4.7); ABSOLUTE MONOCYTES (AUTO) 0.5 10^3/uL (0.1-1.4); ABSOLUTE NEUT (AUTO) 4.2 10^3/uL (1.7-8.2); BASOPHILS % (AUTO) 1.7 % (0-2); EOSINOPHILS % (AUTO) 2.5 % (0-6); HEMATOCRIT 23.2 % (36.0-47.0); LYMPHOCYTES % (AUTO) 20.9 % (13-45); MEAN CORPUSCULAR HEMOGLOBIN 25.3 pg (27.0-33.4); MEAN CORPUSCULAR HGB CONC 31.9 g/dL (32.0-36.0); MEAN CORPUSCULAR VOLUME 79 fl (80-97); MONOCYTES % (AUTO) 8.6 % (3-13); PLATELET COUNT 334 10^3/uL (150-450); RED BLOOD COUNT 2.93 10^6/uL (3.72-5.28); RED CELL DISTRIBUTION WIDTH 16.5 % (11.5-14.0); SEGMENTED NEUTROPHILS % (AUTO) 66.3 % (42-78); TOTAL CELLS COUNTED % (AUTO) 100 %; WHITE BLOOD COUNT 6.3 10^3/uL (4.0-10.5)
[2018-07-14 09:05] LABS: ALANINE AMINOTRANSFERASE 20 U/L (9-52); ALBUMIN 4.3 g/dL (3.5-5.0); ALKALINE PHOSPHATASE 92 U/L (38-126); ANION GAP 10 (5-19); ASPARTATE AMINO TRANSFERASE 23 U/L (14-36); BILIRUBIN,DIRECT 0.3 mg/dL (0.0-0.4); BILIRUBIN,TOTAL 0.3 mg/dL (0.2-1.3); BLOOD UREA NITROGEN 13 mg/dL (7-20); CALCIUM 10.3 mg/dL (8.4-10.2); CARBON DIOXIDE 27 mmol/L (22-30); CHLORIDE 105 mmol/L (98-107); CHOLESTEROL 171.49 mg/dL (0-200); GLUCOSE 97 mg/dL (75-110); POTASSIUM 4.2 mmol/L (3.6-5.0); SODIUM 142.1 mmol/L (137-145); TOTAL PROTEIN 7.2 g/dL (6.3-8.2); TRIGLYCERIDES 112 mg/dL (<150)
[2018-07-14 09:16] LABS: DIRECT LDL 74 mg/dL (<100)
[2018-07-14 09:36] LABS: ALANINE AMINOTRANSFERASE 20 U/L (9-52); ANION GAP 10 (5-19); BLOOD UREA NITROGEN 13 mg/dL (7-20); CALCIUM 10.3 mg/dL (8.4-10.2); CARBON DIOXIDE 27 mmol/L (22-30); CHLORIDE 105 mmol/L (98-107); CREATINE KINASE 77 U/L (30-135); GLUCOSE 97 mg/dL (75-110); POTASSIUM 4.2 mmol/L (3.6-5.0); SODIUM 142.1 mmol/L (137-145)
[2018-07-14 11:40] LABS: HEMOGLOBIN 7.4 g/dL (12.0-15.5)
[2018-07-14 11:43] LABS: ABSOLUTE BASOPHILS # (AUTO) 0.1 10^3/uL (0.0-0.2); ABSOLUTE EOSINOPHILS # (AUTO) 0.2 10^3/uL (0.0-0.6); ABSOLUTE LYMPHOCYTES (AUTO) 1.3 10^3/uL (0.5-4.7); ABSOLUTE MONOCYTES (AUTO) 0.5 10^3/uL (0.1-1.4); ABSOLUTE NEUT (AUTO) 4.2 10^3/uL (1.7-8.2); BASOPHILS % (AUTO) 1.7 % (0-2); EOSINOPHILS % (AUTO) 2.5 % (0-6); HEMATOCRIT 23.2 % (36.0-47.0); HEMOGLOBIN 7.4 g/dL (12.0-15.5); LYMPHOCYTES % (AUTO) 20.9 % (13-45); MEAN CORPUSCULAR HEMOGLOBIN 25.3 pg (27.0-33.4); MEAN CORPUSCULAR HGB CONC 31.9 g/dL (32.0-36.0); MEAN CORPUSCULAR VOLUME 79 fl (80-97); MONOCYTES % (AUTO) 8.6 % (3-13); PLATELET COUNT 334 10^3/uL (150-450); RED BLOOD COUNT 2.93 10^6/uL (3.72-5.28); RED CELL DISTRIBUTION WIDTH 16.5 % (11.5-14.0); SEGMENTED NEUTROPHILS % (AUTO) 66.3 % (42-78); TOTAL CELLS COUNTED % (AUTO) 100 %; WHITE BLOOD COUNT 6.3 10^3/uL (4.0-10.5)
== END ==
LOC: OD 07:06
PROVIDERS: ATTEND Internal Medicine
DX: E78.5 Hyperlipidemia, unspecified (principal); E03.9 Hypothyroidism, unspecified; R53.83 Other fatigue; M79.10 Myalgia, unspecified site; Z79.899 Other long term (current) drug therapy
CPT/HCPCS: 36415; 80048; 80053; 80061; 82550; 84443; 84460; 85025

== ENCOUNTER → 2018-07-17 | Outpatient (CLI) | payer MEDICARE, MEDICAID ==
[2018-07-17 08:32] LABS: ABSOLUTE BASOPHILS # (AUTO) 0.1 10^3/uL (0.0-0.2); ABSOLUTE EOSINOPHILS # (AUTO) 0.2 10^3/uL (0.0-0.6); ABSOLUTE LYMPHOCYTES (AUTO) 1.9 10^3/uL (0.5-4.7); ABSOLUTE MONOCYTES (AUTO) 0.5 10^3/uL (0.1-1.4); ABSOLUTE NEUT (AUTO) 3.9 10^3/uL (1.7-8.2); ABSOLUTE RETICS # 0.071 10^6/uL (0.028-0.122); BASOPHILS % (AUTO) 1.5 % (0-2); EOSINOPHILS % (AUTO) 2.3 % (0-6); HEMATOCRIT 21.6 % (36.0-47.0); LYMPHOCYTES % (AUTO) 29.1 % (13-45); MEAN CORPUSCULAR HGB CONC 31.9 g/dL (32.0-36.0); MEAN CORPUSCULAR VOLUME 78 fl (80-97); MONOCYTES % (AUTO) 8.1 % (3-13); PLATELET COUNT 370 10^3/uL (150-450); RED BLOOD COUNT 2.76 10^6/uL (3.72-5.28); RED CELL DISTRIBUTION WIDTH 16.8 % (11.5-14.0); RETICULOCYTE COUNT (AUTO) 2.58 % (0.66-2.85); TOTAL CELLS COUNTED % (AUTO) 100 %; WHITE BLOOD COUNT 6.6 10^3/uL (4.0-10.5)
[2018-07-17 08:37] LABS: HEMOGLOBIN 6.9 g/dL (12.0-15.5)
[2018-07-17 08:56] LABS: IRON(TIBC) 17.8 ug/dL (37-170)
[2018-07-17 09:32] LABS: FERRITIN 4.68 ng/mL (11.1-264.0)
[2018-07-17 10:09] LABS: FOLATE > 20.00 ng/mL (>2.76)
== END ==
LOC: OD 07:08
PROVIDERS: ATTEND Internal Medicine
DX: D64.9 Anemia, unspecified (principal); K92.2 Gastrointestinal hemorrhage, unspecified; E03.9 Hypothyroidism, unspecified
CPT/HCPCS: 36415; 82607; 82728; 82746; 83010; 83540; 83550; 84443; 85025; 85045

== ENCOUNTER → 2018-09-02 | Outpatient (CLI) | payer MEDICARE, MEDICAID ==
[2018-09-02 10:28] LABS: ABSOLUTE BASOPHILS # (AUTO) 0.1 10^3/uL (0.0-0.2); ABSOLUTE EOSINOPHILS # (AUTO) 0.1 10^3/uL (0.0-0.6); ABSOLUTE NEUT (AUTO) 3.8 10^3/uL (1.7-8.2); EOSINOPHILS % (AUTO) 1.9 % (0-6); TOTAL CELLS COUNTED % (AUTO) 100 %
[2018-09-02 10:33] LABS: ABSOLUTE LYMPHOCYTES (AUTO) 1.5 10^3/uL (0.5-4.7); ABSOLUTE MONOCYTES (AUTO) 0.5 10^3/uL (0.1-1.4); BASOPHILS % (AUTO) 1.1 % (0-2); HEMATOCRIT 40.9 % (36.0-47.0); HEMOGLOBIN 13.7 g/dL (12.0-15.5); LYMPHOCYTES % (AUTO) 24.5 % (13-45); MEAN CORPUSCULAR HEMOGLOBIN 28.2 pg (27.0-33.4); MEAN CORPUSCULAR HGB CONC 33.5 g/dL (32.0-36.0); MEAN CORPUSCULAR VOLUME 84 fl (80-97); MONOCYTES % (AUTO) 8.3 % (3-13); PLATELET COUNT 210 10^3/uL (150-450); RED BLOOD COUNT 4.87 10^6/uL (3.72-5.28); RED CELL DISTRIBUTION WIDTH 21.1 % (11.5-14.0); SEGMENTED NEUTROPHILS % (AUTO) 64.2 % (42-78); WHITE BLOOD COUNT 5.9 10^3/uL (4.0-10.5)
== END ==
LOC: OD 09:57
PROVIDERS: ATTEND Internal Medicine
DX: D64.9 Anemia, unspecified (principal); I10 Essential (primary) hypertension
CPT/HCPCS: 36415; 85025

== ENCOUNTER 2018-09-15 12:22 | Emergency (ER) | payer MEDICARE, MEDICAID ==
--- NOTE | 2018-09-15 13:03 | EKG REPORT ---
SEVERITY:- ABNORMAL ECG - SINUS RHYTHM LEFT VENTRICULAR HYPERTROPHY : Confirmed by: Christophe Smith MD 15-Sep-2018 13:02:48
[2018-09-15] MEDS ORDERED: ASPIRIN 81 MG TABLET, CHEWABLE PO ONE (13:19)
--- NOTE | 2018-09-15 13:23 | ER Document Report ---
ED Medical Screen (RME) - General Chief Complaint: Nausea Stated Complaint: LIGHT HEADED,NAUSEA,FEVER Time Seen by Provider: 09/15/18 13:05 Primary Care Provider: ADELIA ROBERTO MD [Primary Care Provider] - Follow up as needed Mode of Arrival: Ambulatory Information source: Patient Notes: Patient is a 83-year-old female who presents to the emergency department after she had an episode at 10 AM of feeling extremely lightheaded with nausea, vomiting and diaphoresis. She states that this occurred just after eating breakfast. She denies any chest pain or shortness of breath with it. She denies any recent illness. Exam: Lung sounds clear to auscultation bilaterally. Heart sounds S1-S2 present with no ectopy noted. I have greeted and performed a rapid initial assessment of this patient. A comprehensive ED assessment and evaluation of the patient, analysis of test results and completion of the medical decision making process will be conducted by additional ED providers. Dictation of this chart was performed using voice recognition software; therefore, there may be some unintended grammatical errors. TRAVEL OUTSIDE OF THE [place] IN LAST 30 DAYS: No - Related Data Allergies/Adverse Reactions: codeine Allergy (Verified 05/27/17 15:38) morphine Allergy (Verified 05/27/17 15:38) Past Medical History - Social History Chew tobacco use (# tins/day): No Frequency of alcohol use: None Drug Abuse: None - Past Medical History Cardiac Medical History: Reports: Hx Hypercholesterolemia Denies: Hx Atrial Fibrillation, Hx Congestive Heart Failure, Hx Coronary Artery Disease, Hx Heart Attack, Hx Hypertension, Hx Peripheral Vascular Disease, Hx Heart Murmur Pulmonary Medical History: Denies: Hx Asthma, Hx Bronchitis, Hx COPD, Hx Pneumonia, Hx Tuberculosis Neurological Medical History: Denies: Hx Seizures Endocrine Medical History: Reports: Hx Hypothyroidism. Denies: Hx Graves' Disease, Hx Hyperthyroidism Renal/ Medical History: Denies: Hx End Stage Renal Disease, Hx Kidney Stones, Hx Peritoneal Dialysis Malignancy Medical History: Denies: Hx Leukemia GI Medical History: Denies: Hx Cirrhosis, Hx Crohn's Disease, Hx Gastroesophageal Reflux Disease, Hx Hiatal Hernia, Hx Irritable Bowel, Hx Liver Failure, Hx Pancreatitis, Hx Ulcer Musculoskeltal Medical History: Denies Hx Arthritis, Denies Hx Fibromyalgia, Denies Hx Multiple Sclerosis, Denies Hx Muscular Dystrophy Psychiatric Medical History: Denies: Hx Bipolar Disorder, Hx Depression, Hx Schizophrenia Traumatic Medical History: Denies: Hx Fractures Infectious Medical History: Denies: Hx HIV Past Surgical History: Reports: Hx Appendectomy, Hx Hysterectomy. Denies: Hx Bowel Surgery, Hx Section, Hx Cholecystectomy, Hx Colostomy, Hx Coronary Artery Bypass Graft, Hx Gastric Bypass Surgery, Hx Herniorrhaphy, Hx Mastectomy, Hx Pacemaker, Hx Tonsillectomy, Hx Tubal Ligation - Immunizations Immunizations up to date: No Hx Diphtheria, Pertussis, Tetanus Vaccination: No - unknown History of Influenza Vaccine for 03/2017 - 08/2017 Season: Yes Influenza Administration Date for 03/2017 - 08/2017 Season: 03/17/17 Physical Exam - Vital signs Vitals: Temp Pulse Resp BP Pulse Ox 97.5 F 69 14 171/60 H 96 09/15/18 12:44 09/15/18 12:44 09/15/18 12:44 09/15/18 12:44 09/15/18 12:44 Course - Vital Signs Vital signs: Temp Pulse Resp BP Pulse Ox 97.5 F 69 14 171/60 H 96 09/15/18 12:44 09/15/18 12:44 09/15/18 12:44 09/15/18 12:44 09/15/18 12:44 Doctor's Discharge - Discharge Referrals: ADELIA ROBERTO MD [Primary Care Provider] - Follow up as needed
[2018-09-15 13:58] LABS: ABSOLUTE BASOPHILS # (AUTO) 0.1 10^3/uL (0.0-0.2); ABSOLUTE LYMPHOCYTES (AUTO) 1.3 10^3/uL (0.5-4.7); ABSOLUTE MONOCYTES (AUTO) 0.6 10^3/uL (0.1-1.4); ABSOLUTE NEUT (AUTO) 8.1 10^3/uL (1.7-8.2); BASOPHILS % (AUTO) 0.9 % (0-2); EOSINOPHILS % (AUTO) 0.4 % (0-6); HEMATOCRIT 41.9 % (36.0-47.0); HEMOGLOBIN 14.1 g/dL (12.0-15.5); LYMPHOCYTES % (AUTO) 12.6 % (13-45); MEAN CORPUSCULAR HEMOGLOBIN 28.5 pg (27.0-33.4); MEAN CORPUSCULAR HGB CONC 33.7 g/dL (32.0-36.0); MEAN CORPUSCULAR VOLUME 85 fl (80-97); MONOCYTES % (AUTO) 5.5 % (3-13); PLATELET COUNT 269 10^3/uL (150-450); RED BLOOD COUNT 4.95 10^6/uL (3.72-5.28); RED CELL DISTRIBUTION WIDTH 20.2 % (11.5-14.0); SEGMENTED NEUTROPHILS % (AUTO) 80.6 % (42-78); TOTAL CELLS COUNTED % (AUTO) 100 %; WHITE BLOOD COUNT 10.1 10^3/uL (4.0-10.5)
[2018-09-15 14:11] LABS: ALANINE AMINOTRANSFERASE 34 U/L (9-52); ALBUMIN 4.1 g/dL (3.5-5.0); ALKALINE PHOSPHATASE 105 U/L (38-126); ANION GAP 8 (5-19); ASPARTATE AMINO TRANSFERASE 27 U/L (14-36); BILIRUBIN,DIRECT 0.3 mg/dL (0.0-0.4); BILIRUBIN,TOTAL 0.3 mg/dL (0.2-1.3); BLOOD UREA NITROGEN 17 mg/dL (7-20); CALCIUM 10.2 mg/dL (8.4-10.2); CARBON DIOXIDE 30 mmol/L (22-30); CHLORIDE 98 mmol/L (98-107); CREATINE KINASE 26 U/L (30-135); GLUCOSE 101 mg/dL (75-110); POTASSIUM 4.4 mmol/L (3.6-5.0); SODIUM 135.9 mmol/L (137-145); TOTAL PROTEIN 7.5 g/dL (6.3-8.2)
--- NOTE | 2018-09-15 14:20 | RADIOLOGY REPORT (SQ) ---
EXAM DESCRIPTION: CHEST SINGLE VIEW COMPLETED DATE/TIME: 09/15/2018 2:13 pm REASON FOR STUDY: weakness, diaphoresis COMPARISON: 04/19/2018 EXAM PARAMETERS: NUMBER OF VIEWS: One view. TECHNIQUE: Single frontal radiographic view of the chest acquired. RADIATION DOSE: NA LIMITATIONS: None. FINDINGS: LUNGS AND PLEURA: Lung nick are hyperexpanded otherwise clear. No consolidation or effu sions. MEDIASTINUM AND HILAR STRUCTURES: No masses. Contour normal. HEART AND VASCULAR STRUCTURES: Heart normal in size. Normal vasculature. BONES: No acute findings. HARDWARE: None in the chest. OTHER: No other significant finding. IMPRESSION: NO ACUTE RADIOGRAPHIC FINDING IN THE CHEST. TECHNICAL DOCUMENTATION: JOB ID: [id number] [employer]- All Rights Reserved Reading location - IP/workstation name: [email or web address]
[2018-09-15 14:23] LABS: CREATINE KINASE MB 0.35 ng/mL (<4.55)
[2018-09-15 14:25] LABS: TROPONIN I < 0.012 ng/mL
[2018-09-15 14:29] LABS: ANISOCYTOSIS 2+; OVALOCYTES SLIGHT; PLATELET COMMENT ADEQUATE; POIKILOCYTOSIS SLIGHT; TEAR DROP CELLS SLIGHT
--- NOTE | 2018-09-15 17:38 | ER Document Report ---
ED General - General Chief Complaint: Nausea Stated Complaint: LIGHT HEADED,NAUSEA,FEVER Time Seen by Provider: 09/15/18 13:05 Primary Care Provider: ADELIA ROBERTO MD [Primary Care Provider] - Follow up in 3-5 days Mode of Arrival: Ambulatory Information source: Patient Notes: This is a pleasant 85-year-old female with a history of anemia that awoke usual state of health at 7 AM and while eating cereal, she felt nauseous, dizzy, hot and sweaty. She vomited once. And a little while later she started to feel better but then vomited a second time. Since that time, her symptoms have resolved completely. She never had any episode of focal weakness, slurred speech, chest pain or abdominal pain. The patient denies any recent fevers or illnesses. TRAVEL OUTSIDE OF THE [place] IN LAST 30 DAYS: No - HPI Onset: Just prior to arrival Onset/Duration: Sudden Quality of pain: No pain Severity: None Pain Level: Denies Associated symptoms: Nausea, Vomiting. denies: Chest pain, Fever, Shortness of breath Exacerbated by: Denies Relieved by: Denies Similar symptoms previously: No Recently seen / treated by doctor: No - Related Data Allergies/Adverse Reactions: codeine Allergy (Verified 05/27/17 15:38) morphine Allergy (Verified 05/27/17 15:38) Past Medical History - General Information source: Patient - Social History Smoking Status: Never Smoker Cigarette use (# per day): No Chew tobacco use (# tins/day): No Frequency of alcohol use: None Drug Abuse: None Lives with: Family Family History: None, Reviewed & Not Pertinent Patient has suicidal ideation: No Patient has homicidal ideation: No - Past Medical History Cardiac Medical History: Reports: Hx Hypercholesterolemia Denies: Hx Atrial Fibrillation, Hx Congestive Heart Failure, Hx Coronary Artery Disease, Hx Heart Attack, Hx Hypertension, Hx Peripheral Vascular Disease, Hx Heart Murmur Pulmonary Medical History: Denies: Hx Asthma, Hx Bronchitis, Hx COPD, Hx Pneumonia, Hx Tuberculosis Neurological Medical History: Denies: Hx Seizures Endocrine Medical History: Reports: Hx Hypothyroidism. Denies: Hx Graves' Disease, Hx Hyperthyroidism Renal/ Medical History: Denies: Hx End Stage Renal Disease, Hx Kidney Stones, Hx Peritoneal Dialysis Malignancy Medical History: Denies: Hx Leukemia GI Medical History: Denies: Hx Cirrhosis, Hx Crohn's Disease, Hx Gastroe sophageal Reflux Disease, Hx Hiatal Hernia, Hx Irritable Bowel, Hx Liver Failure, Hx Pancreatitis, Hx Ulcer Musculoskeletal Medical History: Denies Hx Arthritis, Denies Hx Fibromyalgia, Denies Hx Multiple Sclerosis, Denies Hx Muscular Dystrophy Psychiatric Medical History: Denies: Hx Bipolar Disorder, Hx Depression, Hx Schizophrenia Traumatic Medical History: Denies: Hx Fractures Infectious Medical History: Denies: Hx HIV Past Surgical History: Reports: Hx Appendectomy, Hx Hysterectomy. Denies: Hx Bowel Surgery, Hx Section, Hx Cholecystectomy, Hx Colostomy, Hx Coronary Artery Bypass Graft, Hx Gastric Bypass Surgery, Hx Herniorrhaphy, Hx Mastectomy, Hx Pacemaker, Hx Tonsillectomy, Hx Tubal Ligation - Immunizations Immunizations up to date: No Hx Diphtheria, Pertussis, Tetanus Vaccination: No - unknown Hx Pneumococcal Vaccination: 03/17/15 Review of Systems - Review of Systems Constitutional: denies: Chills, Fever EENT: No symptoms reported Cardiovascular: No symptoms reported. denies: Chest pain, Palpitations, Heart racing Respiratory: No symptoms reported Gastrointestinal: See HPI. denies: Abdominal pain Genitourinary: No symptoms reported Female Genitourinary: No symptoms reported Musculoskeletal: No symptoms reported Skin: No symptoms reported Hematologic/Lymphatic: No symptoms reported Neurological/Psychological: denies: Weakness, Gait changes, Numbness Physical Exam - Vital signs Vitals: Temp Pulse Resp BP Pulse Ox 97.5 F 69 14 171/60 H 96 09/15/18 12:44 09/15/18 12:44 09/15/18 12:44 09/15/18 12:44 09/15/18 12:44 Notes: Physical exam: GENERAL: Patient is alert and oriented x3, no acute distress blood pressure is 171/60, pulse is 94, O2 sat 95% on room air, respiratory rate 22 HEAD: Atraumatic, normocephalic. EYES: Pupils equal round and reactive to light, extraocular movements intact, sclera anicteric, conjunctiva are normal. ENT: TMs normal, nares patent, oropharynx clear without exudates. Moist mucous membranes. NECK: Normal range of motion, supple without obvious mass or JVD. LUNGS: Breath sounds clear to auscultation bilaterally and equal. No wheezes rales or rhonchi. HEART: Regular rate and rhythm without murmurs, rubs or gallops. ABDOMEN: Soft, normoactive bowel sounds. No tenderness to palpation. No guarding, no rebound. No masses appreciated. EXTREMITIES: Normal range of motion, no pitting or edema. No clubbing or cyanosis. NEUROLOGICAL: Cranial nerves II through XII grossly intact. Normal speech, moving all extremities. Ambulating without difficulty around the emergency room. PSYCH: Normal mood, normal affect. SKIN: Warm, Dry, normal turgor, no rashes or lesions noted. Course - Vital Signs Vital signs: Temp Pulse Resp BP Pulse Ox 98.3 F 88 16 143/76 H 99 09/15/18 20:15 09/15/18 20:15 09/15/18 20:15 09/15/18 20:15 09/15/18 20:15 - Laboratory Result Diagrams: 09/15/18 13:38 09/15/18 13:38 Laboratory results interpreted by me: 09/15/18 09/15/18 13:38 13:38 RDW 20.2 H Seg Neutrophils % 80.6 H Lymphocytes % 12.6 L Sodium 135.9 L Creatine Kinase 26 L - Diagnostic Test Radiology reviewed: Image reviewed, Reports reviewed - Chest x-ray is clear - EKG Interpretation by Me Rate: Normal Rhythm: NSR - EKG shows normal sinus rhythm with a ventricular rate of 74, no acute ST-T wave changes Discharge - Discharge Clinical Impression: Vasovagal episode Condition: Stable Disposition: HOME, SELF-CARE Additional Instructions: As we discussed, your labs look very good. Your anemia is resolved. Your kidney function tests are good. Your heart studies and your EKG were good. I would take it easy over the next few days. I do want you to follow-up with Dr. De Souza: Bring a copy of today's lab tests with you when you go. Return to the emergency room for any chest pain, palpitations, feeling faint or any concerns or getting worse. Referrals: ADELIA ROBERTO MD [Primary Care Provider] - Follow up in 3-5 days
[2018-09-15 18:08] LABS: APPEARANCE,URINE CLEAR; BILIRUBIN,URINE NEGATIVE (NEGATIVE); COLOR,URINE STRAW; GLUCOSE, URINE NEGATIVE (NEGATIVE); KETONES,URINE NEGATIVE (NEGATIVE); LEUKOCYTE ESTERASE,URINE NEGATIVE (NEGATIVE); NITRITE,URINE NEGATIVE (NEGATIVE); PROTEIN,URINE NEGATIVE (NEGATIVE); URINE SPECIFIC GRAVITY 1.005; UROBILINOGEN,URINE NEGATIVE mg/dL (<2.0)
[2018-09-15 20:49] VITALS: BP 143/76
== END 2018-09-15 20:15 | disposition home or self-care (01) ==
LOC: ER 12:22
DX: R55 Syncope and collapse (principal); R11.2 Nausea with vomiting, unspecified; R50.9 Fever, unspecified; R42 Dizziness and giddiness; E78.00 Pure hypercholesterolemia, unspecified; Z90.710 Acquired absence of both cervix and uterus; Z88.6 Allergy status to analgesic agent
CPT/HCPCS: 93005; 99284; 36415; 82553; 82550; 85025; 80053; 81001; 84484; 71045; 93010; A9270

== ENCOUNTER → 2018-10-01 | Outpatient (CLI) | payer MEDICARE, MEDICAID ==
--- NOTE | 2018-10-01 13:30 | RADIOLOGY REPORT (SQ) ---
EXAM DESCRIPTION: CAROTID DOPPLER COMPLETED DATE/TIME: 10/01/2018 10:45 am REASON FOR STUDY: SYNCOPE R55 SYNCOPE AND COLLAPSE COMPARISON: None. TECHNIQUE: Grayscale ultrasound, Doppler velocity and spectra, and color Doppler images acquired of the extra-cranial carotid and vertebral arteries. Images stored on PACS. LIMITATIONS: None. FINDINGS: RIGHT CAROTID CCA Velocities: Within normal limits. ICA Velocities Peak systolic 138 cm/s. End diastolic 24 cm/s. Proximal ICA/CCA peak systolic ratio 2.16. There is considerable irregular plaque in the carotid bulb and proximal internal and external carotid arteries. Tortuous ICA. LEFT CAROTID CCA Velocities: Within normal limits. ICA Velocities Peak systolic 141 cm/s. End diastolic 32 cm/s. Proximal ICA/CCA peak systolic ratio 1.93. Considerable irregular plaque is present in the carotid bulb and proximal internal carotid. Tortuous ICA. VERTEBRAL ARTERIES: Antegrade flow. Normal waveforms. SUBCLAVIAN ARTERIES: No finding. OTHER: No other significant finding. IMPRESSION: Bilateral atherosclerotic changes with 50 to 69% stenosis. COMMENT: Quality ID #[id number]: Velocity criteria are extrapolated from the diameter data as defined by t he Society of Radiologists in Ultrasound Consensus Conference. Radiology 2003: 229; 340-346. TECHNICAL DOCUMENTATION: JOB ID: [id number] [employer]- All Rights Reserved Reading location - IP/workstation name: [email or web address]
== END ==
LOC: SP 07:48
PROVIDERS: ATTEND Internal Medicine
DX: R55 Syncope and collapse (principal)
CPT/HCPCS: 93880

== ENCOUNTER → 2018-10-21 | Outpatient (CLI) | payer MEDICARE, MEDICAID ==
[2018-10-21 08:49] LABS: ABSOLUTE BASOPHILS # (AUTO) 0.1 10^3/uL (0.0-0.2); ABSOLUTE EOSINOPHILS # (AUTO) 0.1 10^3/uL (0.0-0.6); ABSOLUTE LYMPHOCYTES (AUTO) 1.6 10^3/uL (0.5-4.7); ABSOLUTE MONOCYTES (AUTO) 0.5 10^3/uL (0.1-1.4); ABSOLUTE NEUT (AUTO) 3.6 10^3/uL (1.7-8.2); BASOPHILS % (AUTO) 1.2 % (0-2); EOSINOPHILS % (AUTO) 2.3 % (0-6); HEMATOCRIT 41.4 % (36.0-47.0); HEMOGLOBIN 13.6 g/dL (12.0-15.5); LYMPHOCYTES % (AUTO) 27.3 % (13-45); MEAN CORPUSCULAR HEMOGLOBIN 28.3 pg (27.0-33.4); MEAN CORPUSCULAR HGB CONC 32.9 g/dL (32.0-36.0); MEAN CORPUSCULAR VOLUME 86 fl (80-97); MONOCYTES % (AUTO) 8.5 % (3-13); PLATELET COUNT 219 10^3/uL (150-450); RED CELL DISTRIBUTION WIDTH 14.5 % (11.5-14.0); SEGMENTED NEUTROPHILS % (AUTO) 60.7 % (42-78); TOTAL CELLS COUNTED % (AUTO) 100 %; WHITE BLOOD COUNT 5.9 10^3/uL (4.0-10.5)
[2018-10-21 09:26] LABS: ALANINE AMINOTRANSFERASE 23 U/L (9-52); ALBUMIN 3.7 g/dL (3.5-5.0); ALKALINE PHOSPHATASE 104 U/L (38-126); ANION GAP 10 (5-19); ASPARTATE AMINO TRANSFERASE 24 U/L (14-36); BILIRUBIN,DIRECT 0.2 mg/dL (0.0-0.4); BILIRUBIN,TOTAL 0.5 mg/dL (0.2-1.3); BLOOD UREA NITROGEN 13 mg/dL (7-20); CALCIUM 10.2 mg/dL (8.4-10.2); CARBON DIOXIDE 28 mmol/L (22-30); CHLORIDE 106 mmol/L (98-107); CHOLESTEROL 148.49 mg/dL (0-200); GLUCOSE 90 mg/dL (75-110); IRON 91.2 ug/dL (37-170); POTASSIUM 4.5 mmol/L (3.6-5.0); SODIUM 144.4 mmol/L (137-145); TOTAL PROTEIN 6.9 g/dL (6.3-8.2); TRIGLYCERIDES 116 mg/dL (<150)
[2018-10-21 09:33] LABS: ANISOCYTOSIS SLIGHT; OVALOCYTES 1+; POIKILOCYTOSIS 1+; POLYCHROMASIA SLIGHT
[2018-10-21 09:34] LABS: PLATELET COMMENT ADEQUATE; TEAR DROP CELLS SLIGHT
[2018-10-21 09:37] LABS: DIRECT LDL 70 mg/dL (<100)
== END ==
LOC: OD 07:51
PROVIDERS: ATTEND Internal Medicine
DX: D64.9 Anemia, unspecified (principal); E03.9 Hypothyroidism, unspecified; R53.83 Other fatigue; I10 Essential (primary) hypertension; E78.5 Hyperlipidemia, unspecified
CPT/HCPCS: 36415; 80053; 80061; 82607; 83540; 84443; 85025

== ENCOUNTER 2018-11-16 18:14 | Emergency (ER) | payer MEDICARE, MEDICAID ==
[2018-11-16] MEDS ORDERED: GLUCAGON,HUMAN RECOMB 1 MG INJ IV ONE (18:26)
[2018-11-16] MEDS ORDERED: MAG HYDROX/AL HYDROX/SIMETH SUSP 30 ML UDCUP PO ONE (19:46)
[2018-11-16] MEDS ORDERED: METOCLOPRAMIDE HCL ORAL SOLN 10 MG/10 ML UDCUP PO ONE (19:46)
[2018-11-16] MEDS ORDERED: LIDOCAINE 2% VISCOUS SOLN 20 ML UDCUP PO ONE (19:46)
--- NOTE | 2018-11-16 20:06 | RADIOLOGY REPORT (SQ) ---
EXAM DESCRIPTION: CHEST SINGLE VIEW COMPLETED DATE/TIME: 11/16/2018 7:16 pm REASON FOR STUDY: foreign body in throat? COMPARISON: Chest x-ray 09/15/2018. Soft tissue neck x-ray 11/16/2018. EXAM PARAMETERS: NUMBER OF VIEWS: One view. TECHNIQUE: Single frontal radiographic view of the chest acquired. RADIATION DOSE: NA LIMITATIONS: None. FINDINGS: LUNGS AND PLEURA: No consolidation, pneumothorax or pleural effusion. MEDIASTINUM AND HILAR STRUCTURES: No masses. Contour normal. HEART AND VASCULAR STRUCTURES: Heart normal in size. Normal vasculature. BONES: No acute findings. HARDWARE: None in the chest. OTHER: No radiopaque foreign body is noted. IMPRESSION: No acute radiographic finding in the chest. No radiopaque foreign body. TECHNICAL DOCUMENTATION: JOB ID: [id number] [employer]- All Rights Reserved Reading location - IP/workstation name: [email or web address]
--- NOTE | 2018-11-16 20:08 | RADIOLOGY REPORT (SQ) ---
EXAM DESCRIPTION: XR NECK SOFT TISSUE COMPLETED DATE/TME: 11/16/2018 18:25 CLINICAL HISTORY: 83 years Female foreign body in throat COMPARISON: None. FINDINGS: Epiglottis is unremarkable. Nasopharynx and oropharynx appear within normal limits. No definite foreign object is noted. Mild degenerative changes in the spine. IMPRESSION: No acute abnormality is identified. No definite foreign object is noted. If there is continued concern recommend CT
--- NOTE | 2018-11-16 21:31 | ER Document Report ---
ED General - General Chief Complaint: Choked/Choking Stated Complaint: DIFFICULTY SWALLOWING Time Seen by Provider: 11/16/18 18:25 Primary Care Provider: ADELIA ROBERTO MD [Primary Care Provider] - Follow up as needed Notes: Patient is an 83-year-old female who presents with a sensation of having something stuck in her throat after eating a hot dog. The patient states that she has been unable to swallow since taking too large of a part of the hot dog and felt like it has been stuck in her throat. She notes a constant, dull, aching discomfort in the middle of her throat. Regarded as being severe. Worsened by attempts at swallowing, not improved by anything. States that this happened once in the past and was resolved in the emergency department with an IV injection of some kind as well as a GI cocktail. Has never had an endoscopy or esophageal dilation. Denies any difficulty breathing. Has not seen her general physician regarding today's concerns. Denies chest pain or shortness of breath. No syncope. TRAVEL OUTSIDE OF THE [place] IN LAST 30 DAYS: No - Related Data Allergies/Adverse Reactions: codeine Allergy (Verified 11/16/18 18:14) morphine Allergy (Verified 11/16/18 18:14) Past Medical History - General Information source: Patient - Social History Smoking Status: Former Smoker Frequency of alcohol use: None Drug Abuse: None Lives with: Alone Family History: Reviewed & Not Pertinent Patient has suicidal ideation: No Patient has homicidal ideation: No - Past Medical History Cardiac Medical History: Reports: Hx Hypercholesterolemia Denies: Hx Atrial Fibrillation, Hx Congestive Heart Failure, Hx Coronary Artery Disease, Hx Heart Attack, Hx Hypertension, Hx Peripheral Vascular Disease, Hx Heart Murmur Pulmonary Medical History: Denies: Hx Asthma, Hx Bronchitis, Hx COPD, Hx Pneumonia, Hx Tuberculosis Neurological Medical History: Denies: Hx Seizures Endocrine Medical History: Reports: Hx Hypothyroidism. Denies: Hx Graves' Disease, Hx Hyperthyroidism Renal/ Medical History: Denies: Hx End Stage Renal Disease, Hx Kidney Stones, Hx Peritoneal Dialysis Malignancy Medical History: Denies: Hx Leukemia GI Medical History: Denies: Hx Cirrhosis, Hx Crohn's Disease, Hx Gastroesophageal Reflux Disease, Hx Hiatal Hernia, Hx Irritable Bowel, Hx Liver Failure, Hx Pancreatitis, Hx Ulcer Musculoskeletal Medical History: Denies Hx Arthritis, Denies Hx Fibromyalgia, Denies Hx Multiple Sclerosis, Denies Hx Muscular Dystrophy, Denies Hx Systemic Lupus Erythematosus Psychiatric Medical History: Denies: Hx Bipolar Disorder, Hx Depression, Hx Schizophrenia Traumatic Medical History: Denies: Hx Fractures Infectious Medical History: Denies: Hx HIV Past Surgical History: Reports: Hx Appendectomy, Hx Hysterectomy. Denies: Hx Bowel Surgery, Hx Section, Hx Cholecystectomy, Hx Colostomy, Hx Coronary Artery Bypass Graft, Hx Gastric Bypass Surgery, Hx Herniorrhaphy, Hx Mastectomy, Hx Pacemaker, Hx Tonsillectomy, Hx Tubal Ligation - Immunizations Immunizations up to date: No Hx Diphtheria, Pertussis, Tetanus Vaccination: No - unknown Hx Pneumococcal Vaccination: 03/17/15 Review of Systems - Review of Systems Notes: Constitutional: Negative for fever. HENT: Positive for throat discomfort, sensation of esophageal foreign body Eyes: Negative for visual changes. Cardiovascular: Negative for chest pain. Respiratory: Negative for shortness of breath. Gastrointestinal: Negative for abdominal pain, vomiting or diarrhea. Genitourinary: Negative for dysuria. Musculoskeletal: Negative for back pain. Skin: Negative for rash. Neurological: Negative for headaches, weakness or numbness. 10 point ROS negative except as marked above and in HPI. Physical Exam - Vital signs Vitals: Temp Pulse Resp Pulse Ox 98.8 F 80 16 92 11/16/18 18:16 11/16/18 18:16 11/16/18 18:16 11/16/18 18:16 Interpretation: Normal Notes: PHYSICAL EXAMINATION: GENERAL: Well-appearing, well-nourished and in no acute distress. HEAD: Atraumatic, normocephalic. EYES: Pupils equal round and reactive to light, extraocular movements intact, sclera anicteric, conjunctiva are normal. ENT: nares patent, oropharynx clear without exudates. Moist mucous membranes. NECK: Normal range of motion, supple without lymphadenopathy LUNGS: Breath sounds clear to auscultation bilaterally and equal. No wheezes rales or rhonchi. HEART: Regular rate and rhythm without murmurs ABDOMEN: Soft, nontender, normoactive bowel sounds. No guarding, no rebound. No masses appreciated. EXTREMITIES: Normal range of motion, no pitting or edema. No cyanosis. NEUROLOGICAL: No focal neurological deficits. Moves all extremities spontaneously and on command. PSYCH: Normal mood, normal affect. SKIN: Warm, Dry, normal turgor, no rashes or lesions noted. Course - Re-evaluation Re-evalutation: 11/16/18 21:29 Patient presents after feeling like she got a piece of a hot dog stuck in her esophagus. Patient was unable to tolerate oral secretions at initial presentation. Was given 1 mg of glucagon IV which did not provide any relief. I did have the patient began sitting on Pepsi and this actually seemed to relieve the obstruction. She is now tolerating oral secretions without any difficulty, drinking water freely without any difficulty. X-ray of the soft tissues of the neck and chest x-ray unremarkable. Patient denied any difficulty breathing at any time, do not suspect aspiration clinically. Patient is currently symptomatic, requesting to go home and I think this is quite reasonable given that she is now swallowing without difficulty. At this time will discharge with return precautions and follow-up recommendations. Verbal discharge instructions given a the bedside and opportunity for questions given. Medication warnings reviewed. Patient is in agreement with this plan and has v erbalized understanding of return precautions and the need for primary care follow-up in the next 24-72 hours. - Vital Signs Vital signs: Temp Pulse Resp BP Pulse Ox 98.2 F 67 22 H 152/86 H 96 11/16/18 21:53 11/16/18 21:53 11/16/18 21:53 11/16/18 21:53 11/16/18 21:53 - Diagnostic Test Radiology reviewed: Image reviewed, Reports reviewed Radiology results interpreted by me: 11/17/18 01:54 Chest x-ray: No acute infiltrate, no evidence of aspiration Discharge - Discharge Clinical Impression: Throat pain Esophageal foreign body Qualifiers: Encounter type: initial encounter Qualified Code(s): T18.108A - Unspecified foreign body in esophagus causing other injury, initial encounter Condition: Good Disposition: HOME, SELF-CARE Additional Instructions: You were seen today for food being stuck in your throat. This did pass here in the emergency department. Please follow-up with your general physician regarding today's emergency department visit. Return if you have any difficulty breathing, difficulty swallowing, persistent vomiting, develop a fever greater than 100.4 F, or have any other symptoms that are worrisome to you. Referrals: ADELIA ROBERTO MD [Primary Care Provider] - Follow up as needed
[2018-11-16 21:55] VITALS: BP 152/86
== END 2018-11-16 21:45 | disposition home or self-care (01) ==
LOC: ER 18:14
DX: T18.108A Unspecified foreign body in esophagus causing other injury, initial encounter (principal); X58.XXXA Exposure to other specified factors, initial encounter; Z87.891 Personal history of nicotine dependence; Z88.6 Allergy status to analgesic agent
CPT/HCPCS: 99283; 96374; 71045; 70360; J1610; J3490; A9270

== ENCOUNTER → 2019-01-28 | Outpatient (CLI) | payer MEDICARE, MEDICAID | LOC: OD 10:47 | PROVIDERS: ATTEND Internal Medicine | DX: E03.9 Hypothyroidism, unspecified (principal) | CPT/HCPCS: 36415; 84443 ==

== ENCOUNTER 2019-01-30 15:25 | Emergency (ER) | payer MEDICARE, MEDICAID ==
--- NOTE | 2019-01-30 15:59 | ER Document Report ---
ED Medical Screen (RME) - General Chief Complaint: Skin Tear(s) Stated Complaint: LEG LACERATION Time Seen by Provider: 01/30/19 15:52 Primary Care Provider: ADELIA ROBERTO MD [Primary Care Provider] - Follow up as needed Mode of Arrival: Wheelchair Information source: Patient Notes: Patient states that she was unable to sit her recliner up and so decided to sl raúl out of her chair. Patient with skin tear to right lower extremity. Patient's tetanus immunization is currently up-to-date I have greeted and performed a rapid initial assessment of this patient. A comprehensive ED assessment and evaluation of the patient, analysis of test results and completion of the medical decision making process will be conducted by additional ED providers. TRAVEL OUTSIDE OF THE [place] IN LAST 30 DAYS: No - Related Data Allergies/Adverse Reactions: codeine Allergy (Verified 01/30/19 15:27) morphine Allergy (Verified 01/30/19 15:27) Past Medical History - Past Medical History Cardiac Medical History: Reports: Hx Hypercholesterolemia Denies: Hx Atrial Fibrillation, Hx Congestive Heart Failure, Hx Coronary Artery Disease, Hx Heart Attack, Hx Hypertension, Hx Peripheral Vascular Disease, Hx Heart Murmur Pulmonary Medical History: Denies: Hx Asthma, Hx Bronchitis, Hx COPD, Hx Pneumonia, Hx Tuberculosis Neurological Medical History: Denies: Hx Seizures Endocrine Medical History: Reports: Hx Hypothyroidism. Denies: Hx Graves' Disease, Hx Hyperthyroidism Renal/ Medical History: Denies: Hx End Stage Renal Disease, Hx Kidney Stones, Hx Peritoneal Dialysis Malignancy Medical History: Denies: Hx Leukemia GI Medical History: Denies: Hx Cirrhosis, Hx Crohn's Disease, Hx Gastroesophageal Reflux Disease, Hx Hiatal Hernia, Hx Irritable Bowel, Hx Liver Failure, Hx Pancreatitis, Hx Ulcer Musculoskeltal Medical History: Denies Hx Arthritis, Denies Hx Fibromyalgia, Denies Hx Multiple Sclerosis, Denies Hx Muscular Dystrophy, Denies Hx Systemic Lupus Erythematosus Psychiatric Medical History: Denies: Hx Bipolar Disorder, Hx Depression, Hx Schizophrenia Traumatic Medical History: Denies: Hx Fractures Infectious Medical History: Denies: Hx HIV Past Surgical History: Reports: Hx Appendectomy, Hx Hysterectomy. Denies: Hx Bowel Surgery, Hx Section, Hx Cholecystectomy, Hx Colostomy, Hx Coronary Artery Bypass Graft, Hx Gastric Bypass Surgery, Hx Herniorrhaphy, Hx Mastectomy, Hx Pacemaker, Hx Tonsillectomy, Hx Tubal Ligation - Immunizations Immunizations up to date: No Hx Diphtheria, Pertussis, Tetanus Vaccination: No - unknown History of Influenza Vaccine for 03/2017 - 08/2017 Season: Yes Influenza Administration Date for 03/2017 - 08/2017 Season: 03/17/17 Physical Exam - Skin Skin Temperature: Warm Skin irregularity: Laceration - Large skin tear to the right lower extremity, no active bleeding Doctor's Discharge - Discharge Referrals: ADELIA ROBERTO MD [Primary Care Provider] - Follow up as needed
[2019-01-30 16:02] VITALS: BP 182/55
--- NOTE | 2019-01-30 17:38 | ER Document Report ---
ED Skin Rash/Insect Bite/Abscs - General Chief Complaint: Skin Tear(s) Stated Complaint: LEG LACERATION Time Seen by Provider: 01/30/19 15:52 Primary Care Provider: ADELIA ROBERTO MD [Primary Care Provider] - Follow up as needed Mode of Arrival: Ambulatory Information source: Patient Notes: 83 yr old very spry female pt, with the listed pmh, here for a skin tea r/laceration to her right lower lateral leg x a few hours. states she was trying to get the foot rest of the recliner she was sitting in to go in but couldn't so she tried to slide out of the chair around it with the foot rest up and accidentally scraped her leg against the metal framing of the foot rest sustaining the skin tear. No numbness, weakness or tingling. Pain worse with movement, better with rest. No pain anywhere else. last TDAP < 5yrs ago. no acute blood loss sx. no intoxication. no pain anywhere else. no blood thinners. no head injury. pt able to walk. acting baseline. no preceding injury sx. no hx of diabetes. no recent abx or steroids. no hx of bleeding or clotting disorders. no surgeries on this leg. otc meds helping the pain some. No other complaints at this time. TRAVEL OUTSIDE OF THE [place] IN LAST 30 DAYS: No - HPI Quality of pain: Achy Severity: Mild Pain Level: 1 Similar symptoms previously: Yes Recently seen / treated by doctor: No - Related Data Allergies/Adverse Reactions: codeine Allergy (Verified 01/30/19 15:27) morphine Allergy (Verified 01/30/19 15:27) Past Medical History - General Information source: Patient - Social History Smoking Status: Never Smoker Frequency of alcohol use: None Drug Abuse: None Lives with: Family Family History: Reviewed & Not Pertinent Patient has suicidal ideation: No Patient has homicidal ideation: No - Past Medical History Cardiac Medical History: Reports: Hx Hypercholesterolemia Denies: Hx Atrial Fibrillation, Hx Congestive Heart Failure, Hx Coronary Artery Disease, Hx Heart Attack, Hx Hypertension, Hx Peripheral Vascular Disease, Hx Heart Murmur Pulmonary Medical History: Denies: Hx Asthma, Hx Bronchitis, Hx COPD, Hx Pneumonia, Hx Tuberculosis Neurological Medical History: Denies: Hx Seizures Endocrine Medical History: Reports: Hx Hypothyroidism. Denies: Hx Diabetes Mellitus Type 1, Hx Diabetes Mellitus Type 2, Hx Graves' Disease, Hx Hyperthyroidism Renal/ Medical History: Denies: Hx End Stage Renal Disease, Hx Kidney Stones, Hx Peritoneal Dialysis Malignancy Medical History: Denies: Hx Leukemia GI Medical History: Denies: Hx Cirrhosis, Hx Crohn's Disease, Hx Gastroesophageal Reflux Disease, Hx Hiatal Hernia, Hx Irritable Bowel, Hx Liver Failure, Hx Pancreatitis, Hx Ulcer Musculoskeletal Medical History: Denies Hx Arthritis, Denies Hx Fibromyalgia, Denies Hx Multiple Sclerosis, Denies Hx Muscular Dystrophy, Denies Hx Systemic Lupus Erythematosus Psychiatric Medical History: Denies: Hx Bipolar Disorder, Hx Depression, Hx Schizophrenia Traumatic Medical History: Denies: Hx Fractures Infectious Medical History: Denies: Hx HIV Past Surgical History: Reports: Hx Appendectomy, Hx Hysterectomy. Denies: Hx Bowel Surgery, Hx Section, Hx Cholecystectomy, Hx Colostomy, Hx Coronary Artery Bypass Graft, Hx Gastric Bypass Surgery, Hx Herniorrhaphy, Hx Mastectomy, Hx Pacemaker, Hx Tonsillectomy, Hx Tubal Ligation - Immunizations Immunizations up to date: Yes Hx Diphtheria, Pertussis, Tetanus Vaccination: Yes - unknown Hx Pneumococcal Vaccination: 03/17/15 Review of Systems - Review of Systems -: Yes All other systems reviewed and negative - to include 10 systems, unless mentioned in the hpi Physical Exam - Vital signs Vitals: Temp Pulse Resp BP Pulse Ox 97.3 F 88 18 182/55 H 99 01/30/19 16:01 01/30/19 16:01 01/30/19 16:01 01/30/19 16:01 01/30/19 16:01 Temp Pulse Resp BP Pulse Ox 01/30/19 16:01 97.3 F 88 18 182/55 H 99 Interpretation: Normal Notes: GENERAL_APPEARANCE: well_nourished, alert, cooperative, no obvious discomfort. pleasant, elderly white female, smiling, speaking in full sentences, easily sitting up, in no sign of pain or resp distress, VITALS: WNL. HEAD: no_swelling\tenderness on the head, no_abrasions\lacerations on the head. normocephalic, atraumatic. no kaur signs. no raccoon eyes no hemotympanum. normal pharynx. normal speech. no epistaxis or nasal drainage. perrl, eomi. no trismus. tongue protrudes midline. NECK: no ttp. full rom. full strength. HEART: RRR LUNGS: CTAB, good air exchange diffusely. no chest wall ttp EXTREMITIES: full rom. full strength. slight antalgic gait secondary to rle skin tear pain. good pulses in all extremities, approx 8 cm very superficial curvilinear skin tear/laceration on the right lateral mid shaft fibula, the skin is very thin and friable and not amenable to repair with sutures secondary to this and it likely tearing more if sutures were placed, exploration of wound showed no FB. Brisk cap refill. good hand budget controller. brisk cap refill. no foot drop. neg jen sign. neg harrison squeeze. no other swelling, bleeding, redness, ttp, streaking, or drainage. SKIN: warm, dry, good_color. no rash or sign of cellulitis. NEURO: motor_intact and sensory_intact in injured_extremity. MENTAL_STATUS: speech_clear, oriented_X_3, responds_appropriately to questions. Course - Re-evaluation Re-evalutation: pt here for a very superficial skin tear to her rle. it was repaired as listed with good results. she does have very thin friable skin that is not amenable to repair via sutures due to it likely tearing worse so dermabond, benzoin, and steri-strips were used with good result. her tdap is utd. no sign of infection so will hold off on abx at this time. advised sx care. advised to monitor for signs of infection. apap for any pain. advised wound care. her bp was a little elevated here today. improved on recheck however unfortunately not documented via nursing after they informed me of this. pt denies any htn sx. advised she needs to f/u with her pcp for a recheck of this as she may need to be placed on bp meds. she attributes her elevated bp to being at the doctors makes her nervous and her acute injury. advised to f/u with pcp in 1-2 days. return for any worsening symptoms. vss. well appearing. satting well on ra. neurononfocal. pt understands and agrees to plan. On reexam, pt improved remained stable. she didn't want anything for pain here. nontoxic. well appearing. pain controlled. tolerating po. requesting to go home. neurononfocal. ambulates without complication. Documentation achieved through voice recording which my lead to some occasional accidental typographical errors. Extensive efforts have been made to proof read documentation to make sure these are the least as possible. Category Date Time Status Wound care [Dressing/Wound Care (ED)] NOW Care 01/30/19 17:50 Active - Vital Signs Vital signs: Temp Pulse Resp BP Pulse Ox 97.3 F 88 18 182/55 H 99 01/30/19 16:01 01/30/19 16:01 01/30/19 16:01 01/30/19 16:01 01/30/19 16:01 Procedures - Laceration/Wound Repair Right Lateral Leg Time completed: 20:00 - 01/30/19 Wound length (cm): 8 Wound's Depth, Shape: Superficial, Linear - curvilinear Laceration pre-procedure: Sterile PPE donned, Betadine prep applied, Sterile drapes applied Wound explored: Clean Irrigated w/ Saline (mLs): 100 Wound Repaired With: Steri-strips - and benzoin, Dermabond Number of Sutures: 0 Layer Closure?: No Number Deep Layer Sutures: 0 Post-procedure wound care: Sterile dressing applied Post-procedure NV exam normal: Yes Complications: Yes Discharge - Discharge Clinical Impression: Elevated blood pressure reading Skin tear of right lower leg without complication Qualifiers: Encounter type: initial encounter Qualified Code(s): S81.811A - Laceration without foreign body, right lower leg, initial encounter Condition: Good Disposition: HOME, SELF-CARE Instructions: Skin Tear ([facility]), High Blood Pressure ([facility]) Additional Instructions: Follow-up with your PCP in 1 to 2 days. Return for any worsening symptoms. tylenol for any pain. keep area clean and dry. monitor for signs of infection. let the dermabond and steri-strips fall off on their own. elevate and rest the area. avoid doing strenuous activity until the wound heals. your blood pressure was a little elevated here today, you need to f/u with your pcp for a bp recheck as you may need to be placed on blood pressure medication. Referrals: ADELIA ROBERTO MD [Primary Care Provider] - Follow up as needed
== END 2019-01-30 18:28 | disposition home or self-care (01) ==
LOC: ER 15:25
DX: S81.811A Laceration without foreign body, right lower leg, initial encounter (principal); W26.9XXA Contact with unspecified sharp object(s), initial encounter; R03.0 Elevated blood-pressure reading, without diagnosis of hypertension; E78.00 Pure hypercholesterolemia, unspecified; E03.9 Hypothyroidism, unspecified; Z88.6 Allergy status to analgesic agent; Z90.710 Acquired absence of both cervix and uterus
CPT/HCPCS: 99282

== ENCOUNTER 2019-05-07 16:49 | Emergency (ER) | payer MEDICARE, MEDICAID ==
[2019-05-07] MEDS ORDERED: GLUCAGON,HUMAN RECOMB 1 MG INJ IM ONE (16:58)
--- NOTE | 2019-05-07 17:08 | ER Document Report ---
ED Medical Screen (RME) - General Chief Complaint: Difficulty Swallowing Stated Complaint: POSSIBLE FOOD LODGED IN THROAT Time Seen by Provider: 05/07/19 16:59 Primary Care Provider: ADELIA ROBERTO MD [Primary Care Provider] - Follow up as needed TRAVEL OUTSIDE OF THE [place] IN LAST 30 DAYS: No - HPI Notes: 05/07/19 17:06 Patient is an 84-year-old female who presents with foreign body sensation in her throat after eating a piece of turkey. Patient states that she has not been able to keep down saliva and has been spitting. She is otherwise breathing without any difficulties. She is urinating normally and having normal bowel movements. Patient states that this is happened a couple times in the past year. She does have chronic issues with swallowing. No fever, chest pain, abdominal pain, vomiting. Will defer any imaging to main side provider. Pt otherwise appears well at this time. Will try glucagon first. I have treated and performed a rapid initial assessment of this patient. A comprehensive ED assessment and evaluation of the patient, analysis of test results and completion of medical decision making process will be conducted by additional ED providers. PHYSICAL EXAMINATION: GENERAL: Well-appearing, well-nourished and in no acute distress. A&Ox4. Answers questions appropriately. Throat: No obvious obstruction or airway compromise. Lungs: CTAB. - Related Data Allergies/Adverse Reactions: codeine Allergy (Verified 01/30/19 15:27) morphine Allergy (Verified 01/30/19 15:27) Past Medical History - Past Medical History Cardiac Medical History: Reports: Hx Hypercholesterolemia Denies: Hx Atrial Fibrillation, Hx Congestive Heart Failure, Hx Coronary Artery Disease, Hx Heart Attack, Hx Hypertension, Hx Peripheral Vascular Disease, Hx Heart Murmur Pulmonary Medical History: Denies: Hx Asthma, Hx Bronchitis, Hx COPD, Hx Pneumonia, Hx Tuberculosis Neurological Medical History: Denies: Hx Seizures, Hx Parkinson's Disease Endocrine Medical History: Reports: Hx Hypothyroidism. Denies: Hx Diabetes Mellitus Type 1, Hx Diabetes Mellitus Type 2, Hx Graves' Disease, Hx Hyperthyroidism Renal/ Medical History: Denies: Hx End Stage Renal Disease, Hx Kidney Stones, Hx Peritoneal Dialysis Malignancy Medical History: Denies: Hx Leukemia GI Medical History: Denies: Hx Cirrhosis, Hx Crohn's Disease, Hx Gastroesophageal Reflux Disease, Hx Hiatal Hernia, Hx Irritable Bowel, Hx Liver Failure, Hx Pancreatitis, Hx Ulcer Musculoskeltal Medical History: Denies Hx Arthritis, Denies Hx Fibromyalgia, Denies Hx Multiple Sclerosis, Denies Hx Muscular Dystrophy, Denies Hx Systemic Lupus Erythematosus Psychiatric Medical History: Denies: Hx Bipolar Disorder, Hx Depression, Hx Schizophrenia Traumatic Medical History: Denies: Hx Fractures Infectious Medical History: Denies: Hx HIV Past Surgical History: Reports: Hx Appendectomy, Hx Hysterectomy. Denies: Hx Bowel Surgery, Hx Section, Hx Cholecystectomy, Hx Colostomy, Hx Coronary Artery Bypass Graft, Hx Gastric Bypass Surgery, Hx Herniorrhaphy, Hx Mastectomy, Hx Pacemaker, Hx Tonsillectomy, Hx Tubal Ligation - Immunizations Immunizations up to date: Yes Hx Diphtheria, Pertussis, Tetanus Vaccination: Yes - unknown Physical Exam - Vital signs Vitals: Temp Pulse Resp BP 98.1 F 80 22 H 183/62 H 05/07/19 17:01 05/07/19 17:01 05/07/19 17:01 05/07/19 17:01 Course - Vital Signs Vital signs: Temp Pulse Resp BP Pulse Ox 98.1 F 80 22 H 183/62 H 05/07/19 17:01 05/07/19 17:01 05/07/19 17:01 05/07/19 17:01 Doctor's Discharge - Discharge Referrals: ADELIA ROBERTO MD [Primary Care Provider] - Follow up as needed
[2019-05-07] MEDS ORDERED: MAG HYDROX/AL HYDROX/SIMETH SUSP 30 ML UDCUP PO ONE (20:24)
[2019-05-07] MEDS ORDERED: LIDOCAINE 2% VISCOUS SOLN 20 ML UDCUP PO ONE ×2 (20:24→22:59)
[2019-05-07] MEDS ORDERED: METOCLOPRAMIDE HCL ORAL SOLN 10 MG/10 ML UDCUP PO ONE (20:24)
--- NOTE | 2019-05-07 20:28 | ER Document Report ---
ED GI/ - General Chief Complaint: Difficulty Swallowing Stated Complaint: POSSIBLE FOOD LODGED IN THROAT Time Seen by Provider: 05/07/19 16:59 Primary Care Provider: ADELIA ROBERTO MD [Primary Care Provider] - Follow up as needed Notes: Patient is an 84 year old female that comes to the Emergency Department for a possible foreign body in her esophagus. She states that at 3 pm she ate a "small piece of baked turkey" and felt like it got stuck. She states she will get choking episodes now and also belching episodes now. She denies vomiting. She states that this would be the third time she got something stuck in her throat, the first time it passed with pepsi, the second time she was given a "drinking medicine" and it resolved. She denies needing endoscopy in the past, she cannot remember the last time she had one. She denies chest pain, difficulty breathing, or any other complaints at this time. TRAVEL OUTSIDE OF THE [place] IN LAST 30 DAYS: No - Related Data Allergies/Adverse Reactions: codeine Allergy (Verified 01/30/19 15:27) morphine Allergy (Verified 01/30/19 15:27) Past Medical History - General Information source: Patient - Social History Smoking Status: Former Smoker Frequency of alcohol use: None Drug Abuse: None Lives with: Family Family History: Reviewed & Not Pertinent Patient has suicidal ideation: No Patient has homicidal ideation: No - Past Medical History Cardiac Medical History: Reports: Hx Hypercholesterolemia Denies: Hx Atrial Fibrillation, Hx Congestive Heart Failure, Hx Coronary Artery Disease, Hx Heart Attack, Hx Hypertension, Hx Peripheral Vascular Disease, Hx Heart Murmur Pulmonary Medical History: Denies: Hx Asthma, Hx Bronchitis, Hx COPD, Hx Pneumonia, Hx Tuberculosis Neurological Medical History: Denies: Hx Seizures, Hx Parkinson's Disease Endocrine Medical History: Reports: Hx Hypothyroidism. Denies: Hx Diabetes Mellitus Type 1, Hx Diabetes Mellitus Type 2, Hx Graves' Disease, Hx Hyperthyroidism Renal/ Medical History: Denies: Hx End Stage Renal Disease, Hx Kidney Stones, Hx Peritoneal Dialysis Malignancy Medical History: Denies: Hx Leukemia GI Medical History: Denies: Hx Cirrhosis, Hx Crohn's Disease, Hx Gastroesophageal Reflux Disease, Hx Hiatal Hernia, Hx Irritable Bowel, Hx Liver Failure, Hx Pancreatitis, Hx Ulcer Musculoskeletal Medical History: Denies Hx Arthritis, Denies Hx Fibromyalgia, De nies Hx Multiple Sclerosis, Denies Hx Muscular Dystrophy, Denies Hx Systemic Lupus Erythematosus Psychiatric Medical History: Denies: Hx Bipolar Disorder, Hx Depression, Hx Schizophrenia Traumatic Medical History: Denies: Hx Fractures Infectious Medical History: Denies: Hx HIV Past Surgical History: Reports: Hx Appendectomy, Hx Hysterectomy. Denies: Hx Bowel Surgery, Hx Section, Hx Cholecystectomy, Hx Colostomy, Hx Coronary Artery Bypass Graft, Hx Gastric Bypass Surgery, Hx Herniorrhaphy, Hx Mastectomy, Hx Pacemaker, Hx Tonsillectomy, Hx Tubal Ligation - Immunizations Immunizations up to date: Yes Hx Diphtheria, Pertussis, Tetanus Vaccination: Yes - unknown Hx Pneumococcal Vaccination: 03/17/15 Review of Systems - Review of Systems Constitutional: No symptoms reported EENT: No symptoms reported Cardiovascular: No symptoms reported Respiratory: No symptoms reported Gastrointestinal: See HPI Genitourinary: No symptoms reported Female Genitourinary: No symptoms reported Musculoskeletal: No symptoms reported Skin: No symptoms reported Hematologic/Lymphatic: No symptoms reported Neurological/Psychological: No symptoms reported Physical Exam - Vital signs Vitals: Temp Pulse Resp BP 98.1 F 80 22 H 183/62 H 05/07/19 17:01 05/07/19 17:01 05/07/19 17:01 05/07/19 17:01 - Notes Notes: GENERAL: Mildly anxious and restless but not in severe distress HEAD: Normocephalic, atraumatic. EYES: Pupils equal, round, and reactive to light. Extraocular movements intact. ENT: Oral mucosa moist, tongue midline. Oropharynx unremarkable. Airway patent. NECK: Full range of motion. Supple. Trachea midline. LUNGS: Clear to auscultation bilaterally, no wheezes, rales, or rhonchi. No respiratory distress. HEART: Regular rate and rhythm. No murmur ABDOMEN: Soft, non-tender. Non-distended. EXTREMITIES: Moves all 4 extremities spontaneously. No edema, normal radial and dorsalis pedis pulses bilaterally. No cyanosis. BACK: no cervical, thoracic, lumbar midline tenderness. No saddle anesthesia, normal distal neurovascular exam. Moves all extremities in full range of motion. NEUROLOGICAL: Alert and oriented x3. Normal speech. Cranial nerves II through X II grossly intact. PSYCH: Cooperative but mildly anxious SKIN: Warm, dry, normal turgor. No rashes or lesions noted. Course - Re-evaluation Re-evalutation: At bedside patient is spitting. She has had this multiple times in the past, she states that previously she has been able to pass this. I did review records and see that she had been given glucagon, GI cocktail, and ultimately Pepsi and had passed this both times. Patient still having symptoms after the glucagon, she was given GI cocktail, afterwards she was given Pepsi just as before but she vomited both back up. Chest x-ray unremarkable except for possible and mildly on the right which does not appear acute but could be a nodule. CBC, chemistry nonspecific. On r eevaluation patient stating she thinks she might feel better, she attempted p.o. again, however she vomited again. Patient being given IV fluids. Discussed with Dr. Rai, recommends KUB and lateral neck with Gastrografin. This was performed, radiology read is pending but initial appearance is achalasia with obstruction. Dr. Rai recommends transfer. I discussed with son and patient, they prefer [facility] at this time. 05/08/19 00:50 I spoke with gastroenterology Dr. Hinson, she does recommend transfer that they will accept the patient but does recommend that patient accepted to hospitalist service. Pending callback. I discussed with Dr. Currie, patient is excepted to the hospitalist service. Plan is for her to go there first and then be evaluated by gastroenterology. I have updated Dr. Rai. 05/08/19 Patient reevaluated, resting quietly, no complaints at this time. 05/08/19 05:36 There has been a bed delay but we should have a bed by lunchtime reportedly after we called for an update. Still pending transfer, no significant change with patient. - Vital Signs Vital signs: Temp Pulse Resp BP Pulse Ox 98.5 F 88 20 159/64 H 94 05/08/19 00:59 05/08/19 00:59 05/08/19 00:59 05/08/19 00:59 05/08/19 00:59 - Laboratory Result Diagrams: 05/07/19 21:16 05/07/19 21:16 Laboratory results interpreted by me: 05/07/19 05/07/19 21:16 21:16 WBC 15.2 H Absolute Neuts (auto) 12.1 H Seg Neutrophils % 79.6 H Calcium 10.3 H Discharge - Discharge Clinical Impression: Esophageal obstruction Vomiting Qualifiers: Vomiting type: unspecified Vomiting Intractability: intractable Nausea presence: unspecified Qualified Code(s): R11.10 - Vomiting, unspecified Condition: Stable Disposition: [facility] Referrals: ADELIA ROBERTO MD [Primary Care Provider] - Follow up as needed
[2019-05-07] MEDS ORDERED: ONDANSETRON HCL INJ/PF 4 MG/2 ML SDV IV ONE (20:58)
[2019-05-07 21:32] LABS: ABSOLUTE BASOPHILS # (AUTO) 0.1 10^3/uL (0.0-0.2); ABSOLUTE EOSINOPHILS # (AUTO) 0.1 10^3/uL (0.0-0.6); ABSOLUTE LYMPHOCYTES (AUTO) 2.2 10^3/uL (0.5-4.7); ABSOLUTE MONOCYTES (AUTO) 0.7 10^3/uL (0.1-1.4); ABSOLUTE NEUT (AUTO) 12.1 10^3/uL (1.7-8.2); BASOPHILS % (AUTO) 0.6 % (0-2); EOSINOPHILS % (AUTO) 0.4 % (0-6); HEMATOCRIT 43.2 % (36.0-47.0); HEMOGLOBIN 14.5 g/dL (12.0-15.5); LYMPHOCYTES % (AUTO) 14.7 % (13-45); MEAN CORPUSCULAR HEMOGLOBIN 30.1 pg (27.0-33.4); MEAN CORPUSCULAR HGB CONC 33.6 g/dL (32.0-36.0); MEAN CORPUSCULAR VOLUME 90 fl (80-97); MONOCYTES % (AUTO) 4.7 % (3-13); PLATELET COUNT 231 10^3/uL (150-450); RED BLOOD COUNT 4.81 10^6/uL (3.72-5.28); RED CELL DISTRIBUTION WIDTH 13.3 % (11.5-14.0); SEGMENTED NEUTROPHILS % (AUTO) 79.6 % (42-78); TOTAL CELLS COUNTED % (AUTO) 100 %; WHITE BLOOD COUNT 15.2 10^3/uL (4.0-10.5)
[2019-05-07 21:42] LABS: ALBUMIN 4.3 g/dL (3.5-5.0); ALKALINE PHOSPHATASE 116 U/L (38-126); ANION GAP 10 (5-19); ASPARTATE AMINO TRANSFERASE 28 U/L (14-36); BILIRUBIN,DIRECT 0.1 mg/dL (0.0-0.4); BILIRUBIN,TOTAL 0.7 mg/dL (0.2-1.3); BLOOD UREA NITROGEN 15 mg/dL (7-20); CALCIUM 10.3 mg/dL (8.4-10.2); CARBON DIOXIDE 29 mmol/L (22-30); CHLORIDE 104 mmol/L (98-107); GLUCOSE 87 mg/dL (75-110); TOTAL PROTEIN 7.7 g/dL (6.3-8.2)
--- NOTE | 2019-05-07 21:52 | RADIOLOGY REPORT (SQ) ---
EXAM: XR CHEST 2 VIEWS CLINICAL INDICATION: 84-year-old female with choking sensation. TECHNIQUE: Two-view, PA and lateral projections of the chest were obtained. COMPARISON: 11/16/2018. FINDINGS: Stable cardiac and mediastinal silhouette. Heart size is normal. Tortuous ectatic atherosclerotic thoracic aorta. Lungs are clear without focal opacity, pneumothorax or pleural effusions. Right-sided superior perihilar opacity is identified, a finding which appears to be increased in size since the previous examination. The opacification measures up to 18 mm and may reflect prominent pulmonary vascularity, however the possibility of pulmonary nodule is not excluded. Slight bilateral pleural apical thickening. The visualized bones are within normal limits. IMPRESSION: 1. No acute cardiopulmonary abnormalities. 2. Right-sided perihilar opacity may represent prominent pulmonary vascularity, however increase since the previous examination for which the possibility of pulmonary nodule cannot be excluded. Follow-up evaluation with CT chest may be considered.
[2019-05-07] MEDS ORDERED: FAMOTIDINE INJ/PF 20 MG/2 ML SDV IV ONE (22:19)
[2019-05-07] MEDS ORDERED: NORMAL SALINE 500 ML IV ONE (22:20)
[2019-05-08] MEDS ORDERED: FENTANYL CITRATE INJ/PF 100 MCG/2 ML AMPUL IV ONE ×2 (00:21→07:51)
[2019-05-08] MEDS ORDERED: NORMAL SALINE 1000 ML 1,000 ML IV PRN (00:24)
--- NOTE | 2019-05-08 00:35 | RADIOLOGY REPORT (SQ) ---
EXAM DESCRIPTION: XR NECK SOFT TISSUE COMPLETED DATE/TME: 05/07/2019 23:42 CLINICAL HISTORY: 84 years, Female, Gastrografin neck to evaluate throat/esophagus COMPARISON: None. NUMBER OF VIEWS: TECHNIQUE: LIMITATIONS: None. FINDINGS: 2 lateral and one AP view of the neck were obtained, after the patient drank Gastrografin. The esophagus is not dilated. There is no evidence of esophageal obstruction. There is no evidence of contrast aspiration. IMPRESSION: No acute finding. A formal swallowing study, utilizing fluoroscopy, might prove helpful for further evaluation. copyright 2010 [employer]- All Rights Reserved
--- NOTE | 2019-05-08 00:39 | RADIOLOGY REPORT (SQ) ---
EXAM DESCRIPTION: XR ABDOMEN 1 VIEW (KUB) COMPLETED DATE/TME: 05/07/2019 23:41 CLINICAL HISTORY: 84 years, Female, Gastrografin KUB to evaluate esophagus/stomach COMPARISON: None. NUMBER OF VIEWS: TECHNIQUE: LIMITATIONS: None. FINDINGS: There is contrast material in the distal esophagus. The esophagus is not dilated. There are no definite filling defects in the distal size. IMPRESSION: No acute finding. An esophagram, using fluoroscopy, might prove helpful for further evaluation. copyright 2010 [employer]- All Rights Reserved
[2019-05-08 09:25] VITALS: BP 147/53
== END 2019-05-08 09:33 | disposition short-term general hospital (02) ==
LOC: ER 16:49
DX: K22.2 Esophageal obstruction (principal); R14.2 Eructation; R11.11 Vomiting without nausea; Z87.891 Personal history of nicotine dependence; Z88.5 Allergy status to narcotic agent; Z88.6 Allergy status to analgesic agent
CPT/HCPCS: 36415; 83690; 85025; 80053; 71046; J1610; J3490; A9270 ×2; J2405; J7040; S0028; 70360; 74018; 96361; 96372; 96374; 96375; 96376; 99284; J3010; J7030